=== PATIENT | female | born 1955 | race Caucasian/White ===

== ENCOUNTER 2020-08-12 08:04 | Outpatient (REF) | payer MEDICARE, OTHER, SELFPAY ==
--- NOTE | 2020-08-12 17:45 | PFT_ITS ---
INDICATIONS: Cough. SPIROMETRY: The FEV1 to FVC of 85% with an FEV1 of 2.09 L which is 77% predicted with an FVC of 2.46 L which is 69% predicted with a maximum voluntary ventilation of 69% predicted. LUNG VOLUMES: Total lung capacity 66% predicted with an expiratory reserve volume of 103% predicted. DIFFUSION CAPACITY: DLCO only 29% predicted. COMPARISONS: None. INTERPRETATION: No obstructive ventilatory defect. No significant response to bronchodilators noted. However, the patient has a moderate restrictive ventilatory defect suggesting the possibility of interstitial lung disease. The patient also has a severe diffusion impairment, which is concerning for the above. The patient needs additional imaging studies, a 6-minute walk test, and pulmonary consultation. Best Mccray MD MR/MODL / [id number]
== END 2020-08-12 08:05 | disposition home or self-care (01) ==
LOC: HO.RESP 08:04
PROVIDERS: PCP Physician Assistant; Visit Provider Physician Assistant
DX: R05 Cough (principal)
CPT/HCPCS: 94060; 94727; 94729

== ENCOUNTER 2020-09-10 08:20 | Outpatient (REF) | payer MEDICARE, OTHER, SELFPAY ==
--- NOTE | 2020-09-10 08:24 | CT_ITS ---
EXAMINATION: CT CHEST WITHOUT CONTRAST CLINICAL INFORMATION: Disorder of lung COMPARISON: Previous chest x-ray most recent April 2020 TECHNIQUE: Multidetector volumetric CT imaging of the chest was done. Axial MIP volume rendering provided. Sagittal and coronal reformatted images were obtained. This CT examination was performed using dose optimization techniques as appropriate, variously including the following: *Automated exposure control *Adjustment of mA and/or kV according to patient size (this includes techniques or standardized protocols for targeted exams where dose is matched to indication/reason for exam; i.e. extremities or head) *Use of iterative reconstruction technique DLP: 209 mGy-cm FINDINGS: LUNGS: There are innumerable small bilateral upper lung nodules and increased interstitial markings, right greater than left. This may represent respiratory bronchiolitis or granulomatous disease related to smoking. Sarcoidosis, inhalational pneumoconiosis and hypersensitivity pneumonitis and other causes of upper lobe interstitial lung disease should be considered. There are cystic changes seen in the lower lobes. There is dependent atelectasis seen in both lower lobes. No evidence of emphysema, bronchiectasis or endobronchial or endotracheal lesion is seen. Pulmonary consultation may be helpful. MEDIASTINUM: There is shotty diffuse mediastinal lymphadenopathy. Largest lymph node is a right paratracheal lymph node that is upper normal in size and measures 0.9 x 1.2 cm. Evaluation for hilar adenopathy is limited without IV contrast however there appears to be a shotty bilateral hilar lymphadenopathy as well. The heart does not appear enlarged. There is mitral annular calcification. There is no coronary artery calcification. There is no pericardial effusion. The thoracic aorta is normal in caliber. PLEURA: There is no pleural effusion. No pleural mass or thickening. AXILLA: No lymphadenopathy. UPPER ABDOMEN: The gallbladder has been removed. OSSEOUS STRUCTURES: There are degenerative changes of the spine. CT/CT chest wo con IMPRESSION: Reticular nodular disease with upper lung distribution and shotty mediastinal and hilar lymphadenopathy. Respiratory bronchiolitis or granulomatous disease related to smoking should be considered as well as causes of upper lung interstitial disease such as sarcoidosis, inhalational pneumoconiosis and hypersensitivity pneumonitis. Pulmonary consultation may be helpful.
[2020-09-10 10:04] LABS: Estimated Average Glucose 131 mg/dL; Hemoglobin A1c % 6.2 %
[2020-09-10 10:11] LABS: Alanine Aminotransferase 28 U/L (0-31); Albumin Level 4.5 g/dL (3.5-5.0); Alkaline Phosphatase 61 U/L (39-117); Anion Gap 17 (12-20); Aspartate Amino Transferase 23 U/L (5-31); Bilirubin Total 0.7 mg/dL (0.0-1.0); Blood Urea Nitrogen 14 mg/dL (9-16); Calcium 8.9 mg/dL (8.4-10.2); Carbon Dioxide 22 mmol/L (22-29); Chloride 104 mmol/L (96-108); Cholesterol 229 mg/dL; Estimated Glomerular Filt Rate > 60; Glucose Fasting 146 mg/dL (60-99); HDL Cholesterol 57 mg/dL; LDL Cholesterol Calculated 130 mg/dl; Potassium 4.5 mmol/l (3.3-5.1); Sodium 138 mmol/L (135-145); Total Protein 7.8 g/dL (6.5-8.0); Triglycerides 214 mg/dL
== END 2020-09-10 08:21 | disposition home or self-care (01) ==
LOC: HO.CT 08:20
PROVIDERS: Visit Provider Physician Assistant
DX: J84.9 Interstitial pulmonary disease, unspecified (principal); I10 Essential (primary) hypertension; R73.09 Other abnormal glucose; R05 Cough
CPT/HCPCS: 71250; 80053; 80061; 83036; 86900; 86901

== ENCOUNTER 2020-09-23 11:18 | Outpatient (REF) | payer MEDICARE, MEDICAID, SELFPAY ==
[2020-09-23 14:16] LABS: Basophils Percent Auto 0.5 % (0-2); Eosinophils Absolute Auto 0.1 X10*3/uL (0.0-0.4); Eosinophils Percent Auto 1.8 % (0-4); Hematocrit 46.6 % (37-47); Hemoglobin 15.8 g/dl (12.0-16.0); Imm Gran Abs Auto 0.04 X10*3/uL (0.00-0.03); Imm Gran Pct Auto 0.5 % (0.0-0.4); Lymphocytes Percent Auto 26.3 % (20-40); MANUAL DIFF FLAG NO; Mean Corpuscular HGB Conc 33.9 g/dl (31.0-35.0); Mean Corpuscular Volume 88.4 fL (80-98); Mean Platelet Volume 9.9 fL (9.4-12.3); Monocytes Absolute Auto 0.7 X10*3/uL (0.1-1.2); Monocytes Percent Auto 8.8 % (2-11); Neutrophils Absolute Auto 4.8 X10*3/uL (2.0-8.3); Neutrophils Percent Auto 62.1 % (45-73); Platelet Count 265 X10*3/uL (160-400); Red Blood Count 5.27 X10*6/uL (4.20-5.50); Red Cell Distribution Width 12.7 % (11.0-16.0); White Blood Count 7.8 X10*3/uL (4.8-10.8)
[2020-10-02 06:28] LABS: Angiotensin Converting Enzyme 23 U/L (9-67)
== END 2020-09-23 11:19 | disposition home or self-care (01) ==
LOC: HO.LAB 11:18
PROVIDERS: PCP Physician Assistant; Visit Provider Internal Medicine
DX: R05 Cough (principal); R59.0 Localized enlarged lymph nodes; J84.9 Interstitial pulmonary disease, unspecified
CPT/HCPCS: 36415; 82164; 85025; 99202

== ENCOUNTER → 2020-10-04 13:12 | Outpatient (REF) | payer MEDICARE, OTHER, SELFPAY ==
--- NOTE | 2020-10-04 13:16 | CA_ITS ---
Transthoracic Echocardiogram Patient (Last, First, Middle): Gina Salter S Gender: Female Date of : 1955 Age: 65 Procedure Date: 10/04/2020 Procedure Type: Transthoracic Echocardiogram Location: OP Height: 170.18 cm Weight: 99.79 kg BSA: 2.11 m2 Heart Rate: bpm BP: 140 / 80 mmHg Hospital Liaison: [facility] Referring MD: Morena Lopez MD Symptoms: R09.02 - Hypoxemia Study Quality: Fair ECG Rhythm: Sinus Conclusions: - The left ventricular systolic function is normal. The visually estimated ejection fraction is between 65-70%. - There is mild mitral annular calcification. - No obvious valvular pathology seen on this study. Findings Left Ventricle Normal left ventricular cavity size. There is mildly increased left ventricular wall thickness. The left ventricular systolic function is normal. The visually estimated ejection fraction is between 65-70%. There is no evidence of regional wall motion abnormalities. Diastolic function is normal for age. Right Ventricle Normal right ventricular cavity size and systolic function. Atria The left atrium is normal in size. The right atrium is normal in size. Aortic Valve There is a normal trileaflet aortic valve. There is no aortic valve stenosis. There is trace (trivial) aortic valve regurgitation. Mitral Valve There is mild mitral annular calcification. There is no mitral valve regurgitation. There is no mitral valve stenosis. Pulmonic Valve The pulmonic valve was not well visualized. Tricuspid Valve There is trace tricuspid valve regurgitation. The pulmonary artery systolic pressure is normal. Great Vessels The asc aorta is normal in size. Venous The inferior vena cava is normal in size and collapses greater than 50% with inspiration. Pericardium/Pleural There is no evidence of pericardial effusion. Prior Study Comparison No prior study available for comparison. Recommendations, Care & Conclusions No obvious valvular pathology seen on this study. Measurements 2D Linear Measurements IVSd: 1.11 0.6-0.9/0.6-1.0 cm LVIDd: 5.08 3.9-5.3/4.2-5.9 cm LVIDd Index: 2.41 2.4-3.2/2.2-3.1 cm/m2 LVIDs: 2.66 2.0-3.6 cm LVPWd: 1.16 0.7-1.1 cm LA Diam: 3.60 2.7-3.8/3.0-4.0 cm LAIDs Index: 1.71 1.5-2.3 cm/m2 LV Mass: 276.61 67-162/88-224 g LV Mass Index: 131.09 43-95/49-115 g/m2 LVOT Diam: 2.00 3.0+(-)1.3 cm 2D Systolic Function EF 4C: 77.50 >55% Mitral Valve MV Pk E: 0.55 MV PK A: 0.87 MV Decel Time: 165.00 E/A: 0.60 E'Lateral: 8.22 E'Medial: 6.38 E/E' Med: 8.70 E/E' Lat: 6.70 PHT: 48.00 MVA PHT: 4.58 Decel Cocke: 3.34 Aortic Valve AoV Pk Veto: 1.78 AoV Mn Veto: 1.23 AoV VTI: 0.31 AoV Pk Grad: 13.00 Aov Mn Grad: 7.00 JIMMIE Cont.VTI: 2.19 AI Pk Veto: 4.68 AI Cocke: 2.12 LVOT LVOT Pk Veto: 1.23 LVOT Mn Veto: 0.82 LVOT VTI: 0.22 LVOT Pk Grad: 6.00 LVOT Mn Grad: 3.00 LVOT Diam: 2.00 LVOT Area: 3.14 Diastolic Function MV Pk E: 0.55 MV Pk A: 0.87 E/A: 0.60 E'Medial: 6.38 E/E' Med: 8.70 E' Laterial: 8.22 E/E' Lat: 6.70 Tricuspid Valve TR Pk Veto: 2.39 TR Pk Grad: 23.00 RA Press: 3.00 RVSP: 26.00 Great Vessels Aorta Ao Asc: 3.00 2.1-3.4 cm Updated in Other Vendor System with Status of Final Matt Palomino MD electronically signed on 10/05/2020 2:32:05 PM with status of Final
== END ==
LOC: HO.CARD 13:12
PROVIDERS: Visit Provider Internal Medicine
DX: R05 Cough (principal); R09.02 Hypoxemia; J98.4 Other disorders of lung; J84.9 Interstitial pulmonary disease, unspecified
CPT/HCPCS: 93306

== ENCOUNTER 2020-10-16 | Outpatient (REF) | payer MEDICARE, MEDICAID, SELFPAY | END 2020-10-16 00:01 | disposition home or self-care (01) | LOC: HO.VC | PROVIDERS: Visit Provider Internal Medicine | DX: Z23 Encounter for immunization (principal) | CPT/HCPCS: 0011A ==

== ENCOUNTER → 2020-10-21 09:41 | Outpatient (BNVA) | payer MEDICARE, OTHER, SELFPAY | PROVIDERS: PCP Physician Assistant; Visit Provider Internal Medicine | DX: J84.9 Interstitial pulmonary disease, unspecified (principal); R09.02 Hypoxemia; R05 Cough | CPT/HCPCS: 99212 ==

== ENCOUNTER 2020-11-05 11:44 | Outpatient (REF) | payer MEDICARE, MEDICAID, SELFPAY ==
[2020-11-05 14:23] LABS: Erythrocyte Sedimentation Rate 5 MM/HR (0-20)
[2020-11-06 12:52] LABS: Myeloperoxidase Antibody <1.0 AI; Proteinase 3 PR3 Antibodies <1.0 AI
[2020-11-06 15:41] LABS: IgA 397 mg/dL (70-320); IgG 1197 mg/dL (600-1540); IgM 69 mg/dL (50-300)
[2020-11-06 22:46] LABS: Anti Nuclear Antibody Screen POSITIVE (NEGATIVE)
== END 2020-11-05 11:45 | disposition home or self-care (01) ==
LOC: HO.LAB 11:44
PROVIDERS: PCP Physician Assistant; Visit Provider Internal Medicine
DX: R09.02 Hypoxemia (principal); J84.9 Interstitial pulmonary disease, unspecified
CPT/HCPCS: 36415; 82784; 85652; 86021; 86038; 86039

== ENCOUNTER 2020-11-13 | Outpatient (REF) | payer MEDICARE, MEDICAID, SELFPAY | END 2020-11-13 00:01 | disposition home or self-care (01) | LOC: HO.VC | PROVIDERS: Visit Provider Internal Medicine | DX: Z23 Encounter for immunization (principal) | CPT/HCPCS: 0012A ==

== ENCOUNTER → 2021-01-14 10:05 | Outpatient (BNVA) | payer MEDICARE, OTHER, SELFPAY | PROVIDERS: PCP Physician Assistant; Visit Provider Internal Medicine | DX: J84.9 Interstitial pulmonary disease, unspecified (principal); R05 Cough; R09.02 Hypoxemia | CPT/HCPCS: 99212 ==

== ENCOUNTER 2021-01-24 07:21 | Outpatient (REF) | payer MEDICARE, MEDICAID, OTHER, SELFPAY ==
[2021-01-24 08:26] LABS: Hematocrit 44.5 % (37-47); Mean Corpuscular HGB Conc 33.7 g/dl (31.0-35.0); Mean Corpuscular Hemoglobin 29.4 pg (27.0-33.0); Mean Corpuscular Volume 87.3 fL (80-98); Mean Platelet Volume 9.6 fL (9.4-12.3); Platelet Count 235 X10*3/uL (160-400); Red Cell Distribution Width 12.9 % (11.0-16.0); White Blood Count 6.9 X10*3/uL (4.8-10.8)
[2021-01-24 09:02] LABS: Alanine Aminotransferase 24 U/L (0-31); Albumin Level 4.3 g/dL (3.5-5.0); Alkaline Phosphatase 57 U/L (39-117); Anion Gap 15 (12-20); Aspartate Amino Transferase 16 U/L (5-31); Bilirubin Total 0.6 mg/dL (0.0-1.0); Blood Urea Nitrogen 10 mg/dL (9-16); Calcium 9.1 mg/dL (8.4-10.2); Carbon Dioxide 24 mmol/L (22-29); Chloride 101 mmol/L (96-108); Cholesterol 227 mg/dL; Estimated Glomerular Filt Rate > 60; Glucose Fasting 180 mg/dL (60-99); HDL Cholesterol 53 mg/dL; LDL Cholesterol Calculated 125 mg/dl; Potassium 4.2 mmol/L (3.3-5.1); Sodium 136 mmol/L (135-145); Total Protein 7.5 g/dL (6.5-8.0); Triglycerides 248 mg/dL
== END 2021-01-24 07:22 | disposition home or self-care (01) ==
LOC: HO.LAB 07:21
PROVIDERS: PCP Physician Assistant; Visit Provider Physician Assistant
DX: I10 Essential (primary) hypertension (principal)
CPT/HCPCS: 36415; 80053; 80061; 85027

== ENCOUNTER 2021-04-04 11:23 | Outpatient (REF) | payer MEDICARE, SELFPAY ==
--- NOTE | ~2021-04-04 | XR_ITS ---
EXAMINATION: XR HAND, LEFT XR HAND, RIGHT CLINICAL INFORMATION: Abnormal immunological findings. COMPARISON: None TECHNIQUE: 3 views each hand. FINDINGS: Left Hand: There is mild loss of PIP and DIP joint space without any bony erosive changes. No fracture or dislocation seen. The MCP joints are maintained normal. There is mild degenerative spurring DIP joint right and There is no osteopenia or soft tissue swelling. Right Hand: There is mild loss of PIP and DIP joint space without bony erosive changes or spurring. The MCP joint space is maintained normal. No acute fracture or osteopenia. There is no osteopenia or soft tissue swelling. XR/XR hand LT min 3V IMPRESSION: Mild degenerative changes PIP and DIP joints both digits. There is mild periarticular spurring DIP joint 3rd digit right hand. No acute fractures seen.
--- NOTE | ~2021-04-04 | XR_ITS ---
EXAMINATION: XR HAND, LEFT XR HAND, RIGHT CLINICAL INFORMATION: Abnormal immunological findings. COMPARISON: None TECHNIQUE: 3 views each hand. FINDINGS: Left Hand: There is mild loss of PIP and DIP joint space without any bony erosive changes. No fracture or dislocation seen. The MCP joints are maintained normal. There is mild degenerative spurring DIP joint right and There is no osteopenia or soft tissue swelling. Right Hand: There is mild loss of PIP and DIP joint space without bony erosive changes or spurring. The MCP joint space is maintained normal. No acute fracture or osteopenia. There is no osteopenia or soft tissue swelling. XR/XR hand RT min 3V IMPRESSION: Mild degenerative changes PIP and DIP joints both digits. There is mild periarticular spurring DIP joint 3rd digit right hand. No acute fractures seen.
[2021-04-04 12:39] LABS: MANUAL DIFF FLAG NO
[2021-04-04 12:44] LABS: Basophils Percent Auto 0.4 % (0-2); Eosinophils Absolute Auto 0.1 X10*3/uL (0.0-0.4); Eosinophils Percent Auto 1.1 % (0-4); Hematocrit 43.6 % (37-47); Hemoglobin 14.9 g/dl (12.0-16.0); Imm Gran Abs Auto 0.05 X10*3/uL (0.00-0.03); Imm Gran Pct Auto 0.4 % (0.0-0.4); Lymphocytes Percent Auto 17.8 % (20-40); Mean Corpuscular HGB Conc 34.2 g/dl (31.0-35.0); Mean Corpuscular Hemoglobin 29.4 pg (27.0-33.0); Mean Platelet Volume 9.8 fL (9.4-12.3); Monocytes Percent Auto 8.6 % (2-11); Neutrophils Percent Auto 71.7 % (45-73); Platelet Count 276 X10*3/uL (160-400); Red Blood Count 5.07 X10*6/uL (4.20-5.50); Red Cell Distribution Width 12.8 % (11.0-16.0); White Blood Count 11.2 X10*3/uL (4.8-10.8)
[2021-04-04 13:04] LABS: Alanine Aminotransferase 21 U/L (0-31); Albumin Level 4.6 g/dL (3.5-5.0); Alkaline Phosphatase 62 U/L (39-117); Anion Gap 15 (12-20); Aspartate Amino Transferase 16 U/L (5-31); Bilirubin Total 0.7 mg/dL (0.0-1.0); Blood Urea Nitrogen 14 mg/dL (9-16); C Reactive Protein 1.52 mg/dL (< or = 0.50); Carbon Dioxide 25 mmol/L (22-29); Chloride 102 mmol/L (96-108); Estimated Glomerular Filt Rate > 60; Glucose Random 106 mg/dL (60-115); Rheumatoid Factor < 15.0 IU/mL (<15.0); Sodium 138 mmol/L (135-145); Total Protein 7.9 g/dL (6.5-8.0)
[2021-04-04 13:21] LABS: TSH reflex Free T4 1.56 uIU/mL (0.32-4.0)
[2021-04-04 13:23] LABS: Thyroid Stimulating Hormone 1.52 uIU/mL (0.32-4.0)
[2021-04-04 13:27] LABS: Erythrocyte Sedimentation Rate 18 MM/HR (0-20)
[2021-04-04 13:35] LABS: Glucose Urine UA NEG (NEG); Leukocyte Esterase Urine 1+ (NEG); Nitrite Urine POS (NEG); Specific Gravity - Urine 1.025 (1.005-1.025); Urine Blood TRACE (NEG); Urine Ketones NEG (NEG); Urine Protein NEG (NEG-TRACE)
[2021-04-04 13:37] LABS: Appearance Urine CLOUDY; Color Urine YELLOW
[2021-04-04 13:49] LABS: Bacteria Urine 4+ /LPF; RBC Urine 0-2 /HPF (0); Squamous Epithelial Cell Urine 3+ /LPF
[2021-04-05 10:47] LABS: Antibody to SS-A Antigen <1.0 NEG AI (<1.0 NEG); Antibody to SS-B Antigen <1.0 NEG AI (<1.0 NEG); SM/Ribonucleoprotein Ab <1.0 NEG AI (<1.0 NEG); Scleroderma 70 Antibody <1.0 NEG AI (<1.0 NEG); Smith Protein <1.0 NEG AI (<1.0 NEG)
[2021-04-07 13:07] LABS: Cyclic Citrullinated Peptide <16 UNITS
[2021-04-07 14:21] LABS: Complement C3 197 mg/dL (83-193)
[2021-04-07 17:12] LABS: Thyroglobulin Antibodies 3 IU/mL (< or = 1); Thyroid Peroxidase Antibodies 1 IU/mL (<9)
== END 2021-04-04 11:24 | disposition home or self-care (01) ==
LOC: HO.XRAY 11:23
PROVIDERS: PCP Physician Assistant; Visit Provider Student in an Organized Health Care Education/Training Program
DX: J84.9 Interstitial pulmonary disease, unspecified (principal); R76.8 Other specified abnormal immunological findings in serum; E11.65 Type 2 diabetes mellitus with hyperglycemia; Z79.899 Other long term (current) drug therapy; Z79.84 Long term (current) use of oral hypoglycemic drugs; Z87.891 Personal history of nicotine dependence
CPT/HCPCS: 36415; 73130; 80053; 81001; 82550; 84443; 85025; 85652; 86140; 86160; 86200; 86235; 86376; 86431; 86800; 99202

== ENCOUNTER → 2021-04-15 15:29 | Outpatient (BNVA) | payer MEDICARE, SELFPAY | PROVIDERS: PCP Physician Assistant; Visit Provider Student in an Organized Health Care Education/Training Program | DX: R76.8 Other specified abnormal immunological findings in serum (principal) | CPT/HCPCS: 99212 ==

== ENCOUNTER → 2021-05-21 09:26 | Outpatient (BNVA) | payer MEDICARE, SELFPAY | PROVIDERS: PCP Physician Assistant; Visit Provider Internal Medicine | DX: J84.9 Interstitial pulmonary disease, unspecified (principal); R76.8 Other specified abnormal immunological findings in serum; R09.02 Hypoxemia; R05 Cough | CPT/HCPCS: 99212 ==

== ENCOUNTER 2021-06-13 08:38 | Outpatient (REF) | payer MEDICARE, SELFPAY ==
[2021-06-13 09:35] LABS: Alanine Aminotransferase 22 U/L (0-31); Albumin Level 4.3 g/dL (3.5-5.0); Alkaline Phosphatase 49 U/L (39-117); Anion Gap 14 (12-20); Aspartate Amino Transferase 15 U/L (5-31); Bilirubin Total 0.9 mg/dL (0.0-1.0); Blood Urea Nitrogen 16 mg/dL (9-16); Calcium 9.3 mg/dL (8.4-10.2); Carbon Dioxide 26 mmol/L (22-29); Chloride 102 mmol/L (96-108); Cholesterol 216 mg/dL; Estimated Glomerular Filt Rate > 60; Glucose Fasting 157 mg/dL (60-99); HDL Cholesterol 55 mg/dL; LDL Cholesterol Calculated 119 mg/dl; Potassium 4.3 mmol/L (3.3-5.1); Sodium 138 mmol/L (135-145); Total Protein 7.3 g/dL (6.5-8.0); Triglycerides 212 mg/dL
== END 2021-06-13 08:39 | disposition home or self-care (01) ==
LOC: HO.LAB 08:38
PROVIDERS: PCP Physician Assistant; Visit Provider Physician Assistant
DX: E11.65 Type 2 diabetes mellitus with hyperglycemia (principal)
CPT/HCPCS: 36415; 80053; 80061

== ENCOUNTER 2022-07-27 07:24 | Outpatient (REF) | payer MEDICARE, SELFPAY ==
[2022-07-27 08:36] LABS: Hematocrit 43.1 % (37.0-47.0); Hemoglobin 14.5 g/dl (12.0-16.0); Mean Corpuscular HGB Conc 33.6 g/dl (31.0-35.0); Mean Corpuscular Volume 86.2 fL (80.0-98.0); Mean Platelet Volume 9.4 fL (9.4-12.3); Platelet Count 272 X10*3/uL (160-400); Red Cell Distribution Width 13.2 % (11.0-16.0); White Blood Count 7.2 X10*3/uL (4.8-10.8)
[2022-07-27 09:20] LABS: Creatinine Urine 235.83 mg/dL
[2022-07-27 09:30] LABS: Alanine Aminotransferase 24 U/L (0-31); Albumin Level 4.3 g/dL (3.5-5.0); Alkaline Phosphatase 49 U/L (39-117); Anion Gap 18 (12-20); Aspartate Amino Transferase 18 U/L (5-31); Bilirubin Total 0.5 mg/dL (0.0-1.0); Blood Urea Nitrogen 16 mg/dL (9-16); Calcium 8.9 mg/dL (8.4-10.2); Carbon Dioxide 22 mmol/L (22-29); Chloride 103 mmol/L (96-108); Cholesterol 217 mg/dL; Estimated Glomerular Filt Rate > 60; Glucose Fasting 133 mg/dL (60-99); HDL Cholesterol 53 mg/dL; Iron 98 mcg/dL (30-160); LDL Cholesterol Calculated 122 mg/dl; Percent Iron Saturation 24 % (15-50); Potassium 4.3 mmol/L (3.3-5.1); Sodium 139 mmol/L (135-145); Total Iron Binding Capacity 416 mcg/dL (228-428); Total Protein 7.4 g/dL (6.5-8.0); Triglycerides 214 mg/dL; Unsaturated Iron Binding 318 ug/dL
[2022-07-27 09:32] LABS: Estimated Average Glucose 137 mg/dL; Hemoglobin A1c % 6.4 %
[2022-07-27 09:42] LABS: TSH reflex Free T4 2.01 uIU/mL (0.32-4.0)
[2022-07-27 10:29] LABS: Vitamin D 25-OH Total 10.7 ng/mL (>30)
== END 2022-07-27 07:25 | disposition home or self-care (01) ==
LOC: HO.LAB 07:24
PROVIDERS: PCP Physician Assistant; Visit Provider Physician Assistant
DX: E11.65 Type 2 diabetes mellitus with hyperglycemia (principal); D50.9 Iron deficiency anemia, unspecified; I10 Essential (primary) hypertension
CPT/HCPCS: 36415; 80053; 80061; 82043; 82306; 83036; 83540; 84443; 85027

== ENCOUNTER 2023-02-19 07:41 | Outpatient (REF) | payer MEDICARE, SELFPAY ==
[2023-02-19 08:47] LABS: Hemoglobin 14.9 g/dl (12.0-16.0); Mean Corpuscular HGB Conc 33.1 g/dl (31.0-35.0); Mean Corpuscular Hemoglobin 28.5 pg (27.0-33.0); Mean Platelet Volume 9.5 fL (9.4-12.3); Platelet Count 269 X10*3/uL (160-400); Red Blood Count 5.23 X10*6/uL (4.20-5.50); Red Cell Distribution Width 13.2 % (11.0-16.0); White Blood Count 7.3 X10*3/uL (4.8-10.8)
[2023-02-19 08:51] LABS: Estimated Average Glucose 117 mg/dL; Hemoglobin A1c % 5.7 %
[2023-02-19 09:12] LABS: Creatinine Urine 131.74 mg/dL; Microalbum/Creatinine Ratio Ur 10.6 ug/mg cr
[2023-02-19 09:23] LABS: Alanine Aminotransferase 21 U/L (0-31); Albumin Level 4.3 g/dL (3.5-5.0); Alkaline Phosphatase 45 U/L (39-117); Anion Gap 14 (12-20); Aspartate Amino Transferase 15 U/L (5-31); Bilirubin Total 0.6 mg/dL (0.0-1.0); Blood Urea Nitrogen 19 mg/dL (9-16); Calcium 10.2 mg/dL (8.4-10.2); Carbon Dioxide 27 mmol/L (22-29); Chloride 103 mmol/L (96-108); Cholesterol 235 mg/dL; Estimated Glomerular Filt Rate > 60; Glucose Fasting 128 mg/dL (60-99); HDL Cholesterol 51 mg/dL; LDL Cholesterol Calculated 140 mg/dl; Potassium 4.3 mmol/L (3.3-5.1); Sodium 140 mmol/L (135-145); Total Protein 7.4 g/dL (6.5-8.0); Triglycerides 220 mg/dL
== END 2023-02-19 07:42 | disposition home or self-care (01) ==
LOC: HO.LAB 07:41
PROVIDERS: PCP Physician Assistant; Visit Provider Physician Assistant
DX: E11.65 Type 2 diabetes mellitus with hyperglycemia (principal); I10 Essential (primary) hypertension
CPT/HCPCS: 36415; 80053; 80061; 82043; 83036; 85027

== ENCOUNTER 2023-04-01 09:49 | Outpatient (REF) | payer MEDICARE, OTHER, SELFPAY ==
--- NOTE | ~2023-04-01 | XR_ITS ---
EXAMINATION: XR SOFT TISSUE NECK CLINICAL INDICATION: Stenosis of the larynx. COMPARISON: None available. TECHNIQUE: 2 views of the soft tissue neck were obtained. FINDINGS: No definite abnormality of the oropharynx, larynx or cervical trachea is identified. The epiglottis and aryepiglottic folds appear unremarkable. No radiopaque foreign body is appreciated. There is some soft tissue prominence seen about the anterior mandible. XR/XR soft tissue neck IMPRESSION: No definite narrowing of the larynx identified on this plain film study. No radiopaque foreign body. Soft tissue prominence anterior mandible.
== END 2023-04-01 09:50 | disposition home or self-care (01) ==
LOC: HO.XRAY 09:49
PROVIDERS: PCP Physician Assistant; Visit Provider Physician Assistant
DX: J38.6 Stenosis of larynx (principal)
CPT/HCPCS: 70360

== ENCOUNTER 2023-06-18 09:49 | Outpatient (REF) | payer MEDICARE, OTHER, SELFPAY | END 2023-06-18 09:50 | disposition home or self-care (01) | LOC: HO.XRAY 09:49 | PROVIDERS: PCP Physician Assistant; Visit Provider Physician Assistant | DX: R13.12 Dysphagia, oropharyngeal phase (principal) | CPT/HCPCS: 74220 ==

== ENCOUNTER → 2023-06-18 09:50 | Outpatient (BNV) | payer MEDICARE, SELFPAY | PROVIDERS: PCP Physician Assistant; Visit Provider Radiology Diagnostic Radiology | DX: R13.12 Dysphagia, oropharyngeal phase (principal) | CPT/HCPCS: 74230 ==

== ENCOUNTER 2023-07-22 11:26 | Outpatient (AMB) | payer MEDICARE, SELFPAY ==
[2023-07-22 11:34] VITALS: BP 131/62; PULSE 73; BMI 32.5
--- NOTE | 2023-07-22 11:34 | A.OFFVIS_ITS ---
Intake Vital Signs 07/22/23 11:34 Height 5 ft 7 in Weight 207 lb 3.752 oz BMI 32.5 BP 131/62 Blood Pressure Location Lt brachial Position Sitting Pulse 73 Intake Visit Reasons: Dysphagia Intake Note: Gina presents in the office as a new patient for dysphagia. CC: She states that she is not having issues with swallowing. She has had a cough for 4 years and she feels like it is not this. ENT gave her Omeprazole to clear up the cough and she is no longer on the omeparzole. Now she only has a cough that is like one when you have a cold. She thought she was here due to her hiatal hernia. 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 Required: No Allergies amoxicillin Adverse Reaction (Mild, Verified 07/22/23 11:38) GI UPSET HPI HPI Comments History of Present Illness Details A 68 y/o female referred for dysphagia- she disagrees- she has a chronic cough- she does not think it is reflux- She saw ENT- for a cough tx'd omeprazole 3 months sx resolved- gave her diarrhea- no further omeprazole- since BS- This cough 1 -2 weeks ago it is not the same -she says cough is due to by wrist that she picked up during a bus trip Appetite is good Bowels are normal Nausea, vomiting, hematemesis, hematochezia fever or chills she was seeing pulmonary- for lung disease- she stopped seeing Cologuard - negative 2 years ago [facility] Medical History Pre-diabetes Exercise hypoxemia Mediastinal lymphadenopathy Impaired glucose metabolism Surgical History History of section History of cholecystectomy Family History Father Stroke Hypertension Mother Stroke Diabetes Brother Limbic encephalitis Social History (Updated 07/22/23 @ 13:15 by Jane Sousa PA-C) Housing: House Alcohol intake: current Alcohol intake frequency: 0-2 drinks per day Alcohol type: wine Patient Tobacco Use Status: Former Tobacco user Tobacco use type: Cigarette Years Smoked: quit 40 years ago e-Cigarette/Vaping Use: Never Used service: No Current occupational status: retired 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 Cognitive needs: No Hearing needs: No Vision needs: Yes (Per partient is over due for eye exam) Review of Systems Const All systems reviewed & are unremarkable except as noted in HPI and below Card Denies dyspnea and Denies dyspnea on exertion Resp Denies chest congestion, Reports cough, Denies dyspnea and Denies dyspnea on exertion GI Denies abdominal pain, Denies change in bowel habits, Denies heartburn, Denies nausea and Denies vomiting Physical Exam Vital Signs: Last Vital Signs Pulse 73 07/22/23 11:34 BP 131/62 07/22/23 11:34 BMI result Body Mass Index 32.5 Const General: cooperative, healthy appearing, comfortable and no acute distress Orientation/consciousness: patient oriented x3 Limitations: no limitations HEENT Other: Postnasal drip, cough Eyes Sclerae: sclerae normal Resp Effort & Inspection: normal respiratory effort and able to speak in complete sentences Auscultation: clear to auscultation bilaterally, no rales, no rhonchi and no wheezes Cardio Rate: regular rate Rhythm: regular rhythm Heart sounds: S1 normal heart sound present and S2 normal heart sound present GI Palpation (GI): Soft to palpation and nontender Auscultation: bowels sounds not normal Skin General skin exam: no rashes or lesions noted Neuro General: patient oriented x3 Psych Appearance: grossly normal and well kempt Mental Status: mental status grossly normal Speech and movement: Normal speech and movement present and Clear speech present Affect: normal affect Attitude: cooperative Thought process: Normal thought process present Thought content: Normal thought content present Results Reviewed Results Reviewed: FL/FL barium swallow IMPRESSION: Small sliding hiatal hernia with mild gastroesophageal reflux. Assessment & Plan Assessment & Plan (1) Dysphagia: Comment: she denies Code(s): R13.10 - Dysphagia, unspecified Qualifiers: Dysphagia type: oropharyngeal phase Qualified Code(s): R13.12 - Dysphagia, oropharyngeal phase (2) ILD (interstitial lung disease): Comment: ON THE CT SCAN THERE IS EVIDENCE OF SOME RETICULO- NODULAR DIESEASE PREDOMINANTLY IN UPPER LOBES, BUT MILD . NO DEFINITE EMPHYSEMA . RHEUMATOLOGY W/U NEG. Code(s): J84.9 - Interstitial pulmonary disease, unspecified (3) Chronic cough: Comment: Very pleasant, referred with dysphagia, however she has a cough she associates mostly with viral as well as history of interstitial lung disease , she does have postnasal drip We did review symptoms of cough that seemed to resolve while being on PPI however once she had discontinued it she began with cough, as well had URI reviewing barium swallow and show hiatal hernia as well as mild reflux Which she will further discuss with PCP Code(s): R05 - Cough Plan: Reviewed barium swallow Cough could be symptoms of reflux She is not certain she wants to pursue this. She is aware per our discussion we did not wish to miss anything that could cause potential harm Ask that she has discussion with her PCP which she follows up with in the near future Plan she will f/u after she sees pcp- Patient Instructions: Very pleasant 68-year-old female- Reviewed barium swallow Cough could be symptoms of reflux-discussed risks with long-term,un treated She is not certain she wants to pursue this. She is aware she may contact me should she reconsider She has also agreed to keep us informed after she sees PCP Coding Level of Care Code New Pt Level 3 ([id number]) Diagnoses Oropharyngeal dysphagia R13.12 Dysphagia type: oropharyngeal phase ILD (interstitial lung disease) J84.9 Chronic cough R05 Time Spent (min) 30
== END 2023-07-22 15:21 | disposition home or self-care (01) ==
PROVIDERS: PCP Physician Assistant; Visit Provider Physician Assistant
DX: R13.12 Dysphagia, oropharyngeal phase (principal); J84.9 Interstitial pulmonary disease, unspecified; R05.9 Cough, unspecified
CPT/HCPCS: 99203

== ENCOUNTER → 2023-07-22 11:26 | Outpatient (BNVA) | payer MEDICARE, OTHER, SELFPAY | PROVIDERS: PCP Physician Assistant; Visit Provider Physician Assistant | DX: J84.9 Interstitial pulmonary disease, unspecified (principal); R13.12 Dysphagia, oropharyngeal phase; R05.9 Cough, unspecified | CPT/HCPCS: 99202 ==

== ENCOUNTER 2024-02-09 10:30 | Outpatient (AMB) | payer MEDICARE, MEDICAID, SELFPAY ==
[2024-02-09 10:36] VITALS: BMI 34.1
--- NOTE | 2024-02-09 10:38 | AM.OFFVISMDC ---
Intake Vital Signs 02/09/24 10:36 02/09/24 10:42 Height 5 ft 5.75 in Weight 209 lb 8 oz BMI 34.1 BP 122/80 Blood Pressure Location Lt brachial Position Sitting Pulse 72 Pulse Source Pulse Oximeter Pulse Oximetry (%) 96 Oxygen Delivery Method Room Air Intake Visit Reasons: AWV Intake Note: Patient is here for an Annual Wellness Visit. Cabin Outfitter Required: No Accompanied by: Self / Same As Patient Allergies amoxicillin Adverse Reaction (Mild, Verified 02/09/24 10:38) GI UPSET HPI AWV HPI Details Patient is a 60-year-old female here today for annual wellness visit. Patient has a past medical history significant for type 2 diabetes, hyperlipidemia, obesity, interstitial lung disease and hypertension. Concern--> reports having right hand and forearm pain. Did have a Dupuytren's contracture surgery many years ago in her right palm. She does report having some disability in her right hand and is concerned. PLAN: Will send for EMG testing of the right hand to evaluate for neuropathy. Colon cancer screening: Declines Breast cancer screening: Declines Cervical cancer screening: Declines Bone density: Declines End of life planning- does have MOLST form at home though has not filled out. Will discuss with family. Vaccines: Up-to-date with COVID vaccine, declines pneumonia, tetanus HPI Comments History of Present Illness Details reviewed past medical history- yes reviewed surgical / hospitalization history- yes reviewed current medications- yes reviewed family history- yes home safety throw rugs? grab bars? raised toilet seat? working smoke detectors? activities of daily living difficulty bathing or showering? difficulty dressing? difficulty using the toilet? difficulty getting in and out of bed? difficulty walking? receives help from other person's with any of the above tasks? instrumental activities of daily living uses telephone - gets to place out of walking distance- go shopping for groceries- repairs own meals- does own minor home maintenance- does own laundry- does own housework- manages own money- currently takes medication- end of life planning discussed advanced directives- yes advanced directives on file? discussed wishes expressed in advanced directives. fall risk have you had any falls with injuries in the past year? have you had 2 or more falls in the past year? fall risk assessment: [facility] Medical History Pre-diabetes Exercise hypoxemia Mediastinal lymphadenopathy Impaired glucose metabolism Surgical History History of section History of cholecystectomy Family History Father Stroke Hypertension Mother Stroke Diabetes Brother Limbic encephalitis Social History Housing: House Alcohol intake: current Alcohol intake frequency: 0-2 drinks per day Alcohol type: wine Patient Tobacco Use Status: Former Tobacco user Tobacco use type: Cigarette Years Smoked: quit 40 years ago e-Cigarette/Vaping Use: Never Used service: No Current occupational status: retired 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 Cognitive needs: No Hearing needs: No Vision needs: Yes (Per partient is over due for eye exam) Questionnaire Medicare Wellness Checkup What [age] 65-69 What gender do you identify with?: female During the past 4 weeks, how much have you been bothered by emotional problems such as feeling anxious, depressed, irritable, sad or downhearted, and blue?: not at all During the past 4 weeks, has your physical & emotional health limited your social activities with family, friends, neighbors, or groups?: slightly During the past 4 weeks, how much bodily pain have you generally had?: mild pain During the past 4 weeks, was someone available to help you if you needed & wanted help?: yes, as much as I wanted During the past 4 weeks, what was the hardest physical activity you could do for at least 2 minutes?: light Can you get to places out of walking distance without help? (For eg., can you travel alone on buses, taxis or drive your car?): Yes Can you go shopping for groceries or clothes without someone's help?: Yes Can you prepare your own meals?: Yes Can you do your housework without help?: Yes Because of any health problems, do you need the help of another person with your personal care needs such as eating, bathing, dressing or getting around the house?: No Can you handle your own money without help?: Yes During the past 4 weeks, how would you rate your health in general?: good During the past 4 weeks how have things been going for you?: very well; could hardly better Are you having difficulties driving your car?: no Do you always fasten your seat belt when you are in a car?: yes, usually During past 4 weeks, have you been bothered by the following: never: Sexual problems?, Trouble eating well? and Problems using the telephone? and sometimes: Falling or dizzy when standing up, Teeth or denture problems? and Tiredness or fatigue? Have you fallen 2 or more times in the past year?: No Are you afraid of falling?: No Are you a smoker?: no During the past 4 weeks, how many drinks of wine, beer, or other alcoholic beverages did you have?: 6-9 drinks per week Do you exercise for about 20 minutes 3 or more times a week?: no, I usually do not exercise this much Have you been given information to help with the following?: no: Hazards in your house that might hurt you? and no: Keeping track of your medications? How often do you have trouble taking medicines the way you have been told to take them?: I always take medicine as prescribed How confident are you that you can control & manage most of your health problems?: very confident What is your race?: White Mini Mental State Exam (MMSE) Orientation What is the (year) (season) (date) (day) (month)?: season Where are we (state) (county) (town or city) (hospital) (floor)?: state and town or city Attention & Calculation (CHOOSE ONE) Ask pt to begin with 100 & count backward by 7. Stop after 5 repeats. If pt cannot ask them to spell the word WORLD backward.: 93, 86, 79, 72 and 65 Spell WORLD backwards (DLROW): 5 letters Score Score: 13 Activity of Daily Living Bathing - sponge bath, tub bath or shower: receives no assistance (gets in/out by self, if usual bathing means Dressing - getting clothes from closets & drawers, including inner/outer garments & fasteners.: gets clothes & gets completely dressed without help Toileting - going to the 'toilet room' for urine/bowel elimination & cleaning self/arranging clothes: goes to toilet room, cleans self, arranges clothes without help Transfer: moves in & out of bed and chair without help (may use support object) Continence: controls urination/bowel movements completely by self Feeding: feeds self without help Total Score: 0 Information obtained from: patient Using telephone: independent Traveling: independent Shopping: independent Preparing meals: independent Housework: independent Taking medicine: independent Managing money: independent PHQ-9 Over the last 2 weeks, how often have you been bothered by any of the following problems? 1. Little interest or pleasure in doing things: not at all 2. Feeling down, depressed, or hopeless: not at all 3. Trouble falling or staying asleep, or sleeping too much: not at all 4. Feeling tired or having little energy: not at all 5. Poor appetite or overeating: not at all 6. Feeling bad about yourself - or that you are a failure or have let yourself or your family down: not at all 7. Trouble concentrating on things, such as reading the newspaper or watching television: not at all 8. Moving or speaking so slowly that other people could have noticed. Or the opposite - being so fidgety or restless that you have been moving around a lot more than usual: not at all 9. Thoughts that you would be better off or of hurting yourself in some way: not at all Total score: 0 Depression Screening Interpretation: Negative Depression Screening Done: Yes 31898 - PHQ-9 Billing: Yes Source: Developed by Drs. Wilson Wilson, Sheri Roth, Aries Leiva and colleagues, with an educational dejuan from [employer]. Thrive Questionnaire Date Thrive assessed: 02/09/24 I am a: Patient What is your living situation today?: I have a steady place to live Within the past 12 months, did the food you bought not last and you didn't have the money to get more?: Never true Within the past 12 months, did you worry whether your food would run out before you got money to buy more?: Never true Do you have trouble paying for medicines?: No Do you have trouble getting transportation to medical appointments?: No Do you have trouble paying your heating and electricity bill?: No Do you have trouble taking care of your child, family member or friend?: No Do you have trouble with day-to-day activities such as bathing, preparing meals, shopping, managing finances, etc.?: No Are you currently unemployed and looking for a job?: No Are you interested in more education?: No Please select the resources that you would like help with: None Currently or been in a relationship where the following occur: no concerns reported THRIVE Score: 0 JOSEPH-7 AMB Questionnaire JOSEPH-7 Date JOSEPH - 7 assessed: 02/09/24 Feeling nervous, anxious, or on edge: 0 = Not at all Not being able to stop or control worryin = Not at all Worrying too much about different things: 0 = Not at all Trouble relaxin = Not at all Being so restless that it is hard to sit still: 0 = Not at all Becoming easily annoyed or irritable: 0 = Not at all Feeling afraid as if something awful might happen: 0 = Not at all Total JOSEPH-7 score (0-4 normal; 5-9 mild; 10-14 moderate; 15-21 severe): 0 Source: Developed by Drs. Wilson Wilson, Sheri Roth, Aries Leiva and colleagues, with an educational dejuan from [employer]. JOSEPH-7 Assessment Billing JOSEPH-7 Assessment Tool: JOSEPH-7 Assessment 52328 Physical Exam Vital Signs: Last Vital Signs BP 122/80 02/09/24 10:42 BMI result Body Mass Index 34.1 HEENT Other: hearing screening whisper test- pass Eyes Other: vision screening- 20/ 20 OS OU OD Other: urinary incontinence? no Neuro Other: balance Romberg- normal tandem walk test- able walk-in turned test- able rise from sit to stand- within 2 seconds Assessment & Plan Assessment & Plan (1) Encounter for annual wellness visit (AWV) in Medicare patient: Code(s): Z00.00 - Encounter for general adult medical examination without abnormal findings Plan: As per HPI (2) Right hand paresthesia: Code(s): R20.2 - Paresthesia of skin Plan: As per HPI has been experiencing right hand and forearm pain, will send for EMG to evaluate for a cubital tunnel versus carpal tunnel neuropathy . Plan As per HPI Orders: Orders [place] electromyogram (EMG) Today R20.2 - Paresthesia of skin Quality Reporting (2019) Depression/Bipolar (159/160/161/177) PHQ-9: Total score: 0 Coding Level of Care Code Medicare Subsequent (G0439) Est Pt Level 3 (95407) Diagnoses Encounter for annual wellness visit (AWV) in Medicare patient Z00.00 Right hand paresthesia R20.2 CPT Codes Advance Care Planning - Time spent: 1-15 minutes, not on file ([id number]) Additional Codes JOSEPH-7 Assessment Billing - JOSEPH-7 Assessment Tool: JOSEPH-7 Assessment 07590 ([id number]) Advance Care Planning Advance Care Planning discussion: Exists, not on file Date of discussion: 02/09/24 Forms completed: PRECIOUS Time spent: 1-15 minutes, not on file Actual minutes spent: 4
[2024-02-09 10:42] VITALS: BP 122/80; PULSE 72; O2SAT 96
== END 2024-02-09 11:17 | disposition home or self-care (01) ==
PROVIDERS: PCP Physician Assistant; Visit Provider Physician Assistant
DX: Z00.00 Encounter for general adult medical examination without abnormal findings (principal); R20.2 Paresthesia of skin
CPT/HCPCS: 1124F; 99213; G0439

== ENCOUNTER 2024-02-15 10:15 | Outpatient (REF) | payer MEDICARE, MEDICAID, SELFPAY ==
--- NOTE | 2024-02-15 10:17 | EMG_ITS ---
Right median and ulnar motor and sensory studies were performed. Right radial and median and lateral antecubital brachial sensory studies were performed and paraspinal muscles were tested with a needle. IMPRESSION: This is an unremarkable study with no evidence of any entrapment neuropathy. MD MAIA Best/DANNY / [phone]
== END 2024-02-15 10:16 | disposition home or self-care (01) ==
LOC: HO.NEURO 10:15
PROVIDERS: PCP Physician Assistant; Visit Provider Physician Assistant
DX: R20.2 Paresthesia of skin (principal)
CPT/HCPCS: 95886; 95910

== ENCOUNTER 2024-02-19 07:43 | Outpatient (REF) | payer MEDICARE, MEDICAID, SELFPAY ==
[2024-02-19 08:28] LABS: Hematocrit 44.5 % (37.0-47.0); Hemoglobin 15.2 g/dl (12.0-16.0); Mean Corpuscular HGB Conc 34.2 g/dl (31.0-35.0); Mean Corpuscular Hemoglobin 29.7 pg (27.0-33.0); Mean Corpuscular Volume 87.1 fL (80.0-98.0); Mean Platelet Volume 9.5 fL (9.4-12.3); Platelet Count 282 X10*3/uL (160-400); Red Blood Count 5.11 X10*6/uL (4.20-5.50); Red Cell Distribution Width 13.7 % (11.0-16.0); White Blood Count 8.3 X10*3/uL (4.8-10.8)
[2024-02-19 09:08] LABS: Alanine Aminotransferase 15 U/L (0-31); Albumin Level 4.3 g/dL (3.5-5.0); Alkaline Phosphatase 44 U/L (39-117); Anion Gap 16 (12-20); Aspartate Amino Transferase 12 U/L (5-31); Bilirubin Total 0.4 mg/dL (0.0-1.0); Blood Urea Nitrogen 25 mg/dL (9-16); Calcium 9.8 mg/dL (8.4-10.2); Carbon Dioxide 23 mmol/L (22-29); Chloride 104 mmol/L (96-108); Estimated Average Glucose 120 mg/dL; Estimated Glomerular Filt Rate 43; Glucose Fasting 152 mg/dL (60-99); Hemoglobin A1c % 5.8 % (<6.0); Potassium 3.9 mmol/L (3.3-5.1); Sodium 139 mmol/L (135-145); Total Protein 7.7 g/dL (6.5-8.0)
== END 2024-02-19 07:44 | disposition home or self-care (01) ==
LOC: HO.LAB 07:43
PROVIDERS: PCP Physician Assistant; Visit Provider Physician Assistant
DX: E11.65 Type 2 diabetes mellitus with hyperglycemia (principal)
CPT/HCPCS: 36415; 80053; 83036; 85027

== ENCOUNTER 2024-05-11 09:58 | Outpatient (AMB) | payer MEDICARE, MEDICAID, SELFPAY ==
[2024-05-11 10:01] VITALS: BP 142/84; PULSE 88; O2SAT 94; BMI 34.5
--- NOTE | 2024-05-11 10:01 | MHC.PC.OV ---
Vital Signs 05/11/24 10:01 Height 5 ft 5.75 in Weight 212 lb 6 oz BMI 34.5 BP 142/84 H Blood Pressure Location Lt brachial Position Sitting Pulse 88 Pulse Source Pulse Oximeter Pulse Oximetry (%) 94 Oxygen Delivery Method Room Air Intake Visit Reasons: f/u DMII Supervisor Trust Accounts Required: No Accompanied by: Self / Same As Patient Allergies amoxicillin Adverse Reaction (Mild, Verified 05/11/24 10:29) GI UPSET Medication List - Last Reconciled 05/11/24 by Kahlil Escamilla PA-C acetaminophen (Tylenol Extra Strength) 500 mg PO Q6H PRN hydrochlorothiazide 25 mg PO DAILY metformin 1,000 mg PO BID 30 days Tobacco use date assessed: 05/11/24 Fall risk assessment: No Falls in past year Last assessed Fall Risk: 05/11/24 Dental Screening Dental Screen Date: 05/11/24 Did you have a dental visit in the last 12 months?: Yes Did you have a dental problem in the last 6 months where you did not have access to dental care?: No Was dental information given to patient?: Patient has dentist HPI f/u DMII HPI Details Patient is a 69 year female here today for follow-up visit.? Patient has a past medical history significant for hypertension, obesity,interstitial lung disease. Concerns--> reports over the last several weeks having right wrist dull pain. Over though she did get an EMG of her upper extremities a few months back though did not have any neuropathy. She denies any particular trauma to her right hand wrist. She believes she probably has arthritis. Will get x-ray of her right wrist to confirm diagnosis of arthritis. We did discuss perhaps doing occupational therapy though she declines at this time. ILD:? {Patient does not agree with diagnosis} Interval history-->. HAs uses inhaler with some relief of her pulm symptoms. 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 Patient's pulmonary function test showing restrictive pulmonary disease and no obstructive pulmonary disease.? Patient is ANS titers and IgA levels are elevated significant for rheumatological disease.(has seen a supervisor motor vehicle assembly whom recommended seeing pulmonology) Has seen property supervisor whom? suggesting a lung biopsy though patient does not want a invasive procedure.? Also her 6min minute walking test did show hypoxia exercise induced. Currently-->? Unfortunately has stopped seeing pulmonology.? Still has time to time a dry cough that she reports has somewhat gotten better. 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 Has used a rescue albuterol inhaler though feels is not helpful for her cough. .. Hypertension: ? Blood pressure acceptable today in office.? She denies any headaches, vision changes, chest discomfort or palpitations.? She continues on hydrochlorothiazide 25 mg. . DMII:? Patient does not regularly check her blood sugars. Continues on metformin a 1000 b.i.d. though does report GI side effects from the high dose of metformin. PLAN: Will decrease her dose of metformin to 500 b.i.d. if able to start GLP 1(Ozempic) .. Obesity:? She understands his BMI is over 30 and is working on reducing weight by being more physically active and updated better eating habits. Laboratory Tests 07/27/22 02/19/23 02/19/24 07:34 08:16 08:00 RBC 5.11 Fasting Glucose 133 H 128 H 152 H Hemoglobin A1c % 6.4 5.7 Cholesterol 217 235 [facility] Medical History Pre-diabetes Exercise hypoxemia Mediastinal lymphadenopathy Impaired glucose metabolism Surgical History History of section History of cholecystectomy Family History Father Stroke Hypertension Mother Stroke Diabetes Brother Limbic encephalitis Social History Housing: House Alcohol intake: current Alcohol intake frequency: 0-2 drinks per day Alcohol type: wine Patient Tobacco Use Status: Former Tobacco user Tobacco use type: Cigarette Years Smoked: quit 40 years ago e-Cigarette/Vaping Use: Never Used service: No Current occupational status: retired 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 Wilson Wilson, Sheri Roth, Aries Leiva and colleagues, with an educational dejuan from [employer]. Review of Systems Const Denies headache(s) Eyes Denies loss of vision ENT Denies vertigo, Denies dizziness, Denies headache(s) and Denies sore throat Card Denies chest pain, Denies leg edema and Denies lightheadedness Resp Denies cough, Denies hemoptysis and Denies wheezing GI Denies abdominal pain, Denies melena, Denies constipation, Denies diarrhea and Denies vomiting Denies urinary frequency, Denies dysuria and Denies urinary urgency Musc Denies arthralgias, Denies joint swelling, Denies numbness and Denies tingling Neuro Denies Abnormal speech present, Denies behavioral changes, Denies vertigo, Denies dizziness, Denies headache(s), Denies loss of vision, Denies memory loss, Denies numbness and Denies tingling Psych Denies anxiety, Denies behavioral changes, Denies depression, Denies memory loss and Denies panic attacks Praveen/Lymph Denies easy bleeding and Denies easy bruising Aller/Immun Denies wheezing Physical exam (Primary Care) Vital Signs: Last Vital Signs Pulse 88 05/11/24 10:01 BP 142/84 H 05/11/24 10:01 Pulse Ox 94 05/11/24 10:01 Oxygen Delivery Method Room Air 05/11/24 10:01 BMI result Body Mass Index 34.5 Tobacco/Smoking Status: Tobacco use Status Tobacco use date assessed 05/11/24 05/11/24 10:06 Patient Tobacco Use Status Former Tobacco user 05/11/24 10:03 Tobacco use type Cigarette 05/11/24 10:03 e-Cigarette/Vaping Use Never Used 05/11/24 10:03 Thrive Assessment: Date of Thrive Assessment Date Thrive assessed 02/09/24 05/11/24 10:03 Const General: healthy appearing, no acute distress, alert and awake Nutritional Appearance: well nourished Orientation/consciousness: oriented to person, oriented to place and oriented to time HENMT Ears: TM's normal bilaterally General nose exam: Normal nasal mucous membranes and turbinates present Eyes Conjunctivae: conjunctivae normal Sclerae: sclerae normal Pupils: Equal, round and reactive pupils present Neck Neck: Yes no lymphadenopathy and Yes no JVD Thyroid: Thyroid normal Carotids: no bruits Resp Effort & Inspection: normal respiratory effort and not tachypneic Auscultation: no crackles, no rales, no rhonchi and no wheezes Cardio Rate: regular rate Rhythm: regular rhythm Heart sounds: no murmurs and normal S1 and S2 GI Palpation (GI): Soft to palpation, nontender, no hepatomegaly and no splenomegaly Auscultation: normal bowel sounds Skin General skin exam: no rashes or lesions noted and dry skin Neuro General: oriented to person, oriented to place and oriented to time Cranial nerves: Yes Equal, round and reactive pupils present Speech: No Abnormal speech present Gait exam (Neuro): Normal gait present Motor exam (neuro): no tremor noted Extrem Right upper extremity: full ROM Left upper extremity: full ROM Right lower extremity: full ROM; no edema Left lower extremity: full ROM; no edema Psych Mental Status: mental status grossly normal Speech and movement: Normal speech and movement present Affect: normal affect Attitude: cooperative Thought process: Normal thought process present Assessment and Plan Assessment & Plan (1) DMII (diabetes mellitus, type 2): Code(s): E11.9 - Type 2 diabetes mellitus without complications Qualifiers: Diabetes mellitus complication status: with hyperglycemia Diabetes mellitus terminal gauger supervisor insulin use: without terminal gauger supervisor use Qualified Code(s): E11.65 - Type 2 diabetes mellitus with hyperglycemia Plan: Patient's type 2 diabetes well controlled with current dose of metformin 1000 mg b.i.d.. She reports having some GI side effect from high dose of metformin. Will reduce dose to 500 b.i.d.. Will add on Ozempic for added benefit of weight loss as well. Goal A1c is to remain below 7.0 (2) Right wrist tendinitis: Code(s): M77.8 - Other enthesopathies, not elsewhere classified Plan: Patient reports a several month history of right wrist pain. She denies any trauma to the right wrist. Did EMG though did not have any neuropathy. Will send for x-ray to evaluate for osteoarthritis (3) HTN (hypertension): Code(s): I10 - Essential (primary) hypertension Qualifiers: Hypertension type: essential hypertension Qualified Code(s): I10 - Essential (primary) hypertension Plan: Patient's blood pressure slightly elevated today in office, does report feeling somewhat sad about a recent to a friend., continue her current dose of antihypertensive medication with goal blood pressure be below 140/90 (4) HLD (hyperlipidemia): Code(s): E78.5 - Hyperlipidemia, unspecified Qualifiers: Hyperlipidemia type: mixed hyperlipidemia Qualified Code(s): E78.2 - Mixed hyperlipidemia Plan: Patient's most recent fasting lipid panel showing elevated total cholesterol and LDL. She would like to work on lifestyle modifications to reduce her cholesterol. Goal LDL to be below 100. Not interested in starting statin therapy at this time. Orders: Orders Comprehensive [place]. Panel Fast Today E11.65 - Type 2 diabetes mellitus with hyperglycemia Lipid Panel Today E78.2 - Mixed hyperlipidemia XR wrist RT 2V Today M77.8 - Other enthesopathies, not elsewhere classified Hemoglobin A1c Today E11.65 - Type 2 diabetes mellitus with hyperglycemia Microalbumin, Random (w Creat) Today I10 - Essential (primary) hypertension Complete Blood Count no Diff Today E11.65 - Type 2 diabetes mellitus with hyperglycemia Medications: New semaglutide (Ozempic) 0.25 mg (0.368 mL) subcut QWEEK 3 mL 0RF 4 weeks E11.65 - Type 2 diabetes mellitus with hyperglycemia blood sugar diagnostic (FreeStyle Lite Strips) As directed 100 ea 3RF E11.65 - Type 2 diabetes mellitus with hyperglycemia, E11.9 - Type 2 diabetes mellitus without complications blood-glucose meter (FreeStyle Lite Meter kit) As directed 1 ea 0RF E11.65 - Type 2 diabetes mellitus with hyperglycemia lancets (FreeStyle Lancets) As directed 100 ea 3RF E11.65 - Type 2 diabetes mellitus with hyperglycemia, E11.9 - Type 2 diabetes mellitus without complications Patient Instructions: Goal: A1c to remain below 7.0, LDL to be below 100 Barriers: Adherence to physical activity and healthy eating habits Coding Level of Care Code Est Pt Level 4 (70873) Diagnoses Type 2 diabetes mellitus with hyperglycemia, without long-term current use of insulin E11.65 Diabetes mellitus complication status: with hyperglycemia Diabetes mellitus assisted insulin use: without terminal gauger supervisor use Right wrist tendinitis M77.8 Essential hypertension I10 Hypertension type: essential hypertension Mixed hyperlipidemia E78.2 Hyperlipidemia type: mixed hyperlipidemia
== END 2024-05-11 11:05 | disposition home or self-care (01) ==
PROVIDERS: PCP Physician Assistant; Visit Provider Physician Assistant
DX: E11.65 Type 2 diabetes mellitus with hyperglycemia (principal); M77.8 Other enthesopathies, not elsewhere classified; I10 Essential (primary) hypertension; E78.2 Mixed hyperlipidemia
CPT/HCPCS: 99214

== ENCOUNTER 2024-07-25 07:17 | Outpatient (REF) | payer MEDICARE, MEDICAID, SELFPAY ==
[2024-07-25 08:23] LABS: Mean Corpuscular HGB Conc 34.1 g/dl (31.0-35.0); Mean Corpuscular Hemoglobin 29.8 pg (27.0-33.0); Mean Corpuscular Volume 87.2 fL (80.0-98.0); Mean Platelet Volume 9.5 fL (9.4-12.3); Platelet Count 282 X10*3/uL (160-400); Red Cell Distribution Width 13.4 % (11.0-16.0); White Blood Count 7.6 X10*3/uL (4.8-10.8)
[2024-07-25 08:33] LABS: Estimated Average Glucose 117 mg/dL; Hemoglobin A1C 144.1255 umol/L; Hemoglobin A1c % 5.7 % (<6.0); Total Hemoglobin (HGBA1C) 3692.3512 umol/L
[2024-07-25 09:01] LABS: Creatinine Urine 169.11 mg/dL; Microalbum/Creatinine Ratio Ur 16.5 ug/mg cr (<30)
[2024-07-25 09:11] LABS: Alanine Aminotransferase 19 U/L (0-31); Albumin Level 4.1 g/dL (3.5-5.0); Alkaline Phosphatase 48 U/L (39-117); Anion Gap 15 (12-20); Aspartate Amino Transferase 25 U/L (5-31); Bilirubin Total 0.5 mg/dL (0.0-1.0); Blood Urea Nitrogen 15 mg/dL (9-16); Calcium 9.8 mg/dL (8.4-10.2); Carbon Dioxide 24 mmol/L (22-29); Chloride 104 mmol/L (96-108); Cholesterol 202 mg/dL (<200); Estimated Glomerular Filt Rate > 60; Glucose Fasting 114 mg/dL (60-99); HDL Cholesterol 51 mg/dL (>40); LDL Cholesterol Calculated 108 mg/dL (<100); Sodium 139 mmol/L (135-145); Total Protein 7.4 g/dL (6.5-8.0); Triglycerides 218 mg/dL (<150)
== END 2024-07-25 07:18 | disposition home or self-care (01) ==
LOC: HO.LAB 07:17
PROVIDERS: PCP Physician Assistant; Visit Provider Physician Assistant
DX: M77.8 Other enthesopathies, not elsewhere classified (principal); I10 Essential (primary) hypertension; E78.2 Mixed hyperlipidemia; E11.65 Type 2 diabetes mellitus with hyperglycemia
CPT/HCPCS: 36415; 73100; 80053; 80061; 82043; 82570; 83036; 85027

== ENCOUNTER 2024-08-02 10:54 | Outpatient (AMB) | payer MEDICARE, MEDICAID, SELFPAY ==
--- NOTE | 2024-08-02 10:56 | MHC.PC.OV ---
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: No Accompanied by: Self / Same As Patient Allergies amoxicillin Adverse Reaction (Mild, Verified 08/02/24 11:06) GI UPSET Medication List - Last Reconciled 08/02/24 by Kahlil Escamilla PA-C acetaminophen (Tylenol Extra Strength) 500 mg PO Q6H PRN blood sugar diagnostic (FreeStyle Lite Strips) As directed blood-glucose meter (FreeStyle Lite Meter kit) As directed dulaglutide (Trulicity) 0.75 mg (0.5 mL) subcut QWEEK 4 weeks hydrochlorothiazide 25 mg PO DAILY lancets (FreeStyle Lancets) As directed metformin 1,000 mg PO BID 30 days Tobacco use date assessed: 08/02/24 Fall risk assessment: No Falls in past year Last assessed Fall Risk: 08/02/24 Dental Screening Dental Screen Date: 08/02/24 Did you have a dental visit in the last 12 months?: No Did you have a dental problem in the last 6 months where you did not have access to dental care?: No Was dental information given to patient?: Patient has dentist HPI 3 month follow up f/u DMII HPI Details Patient is a 69 year female here today for follow-up visit.? Patient has a past medical history significant for hypertension, obesity,interstitial lung disease. Concerns--> reports over the last several weeks having right wrist dull pain. Over though she did get an EMG of her upper extremities a few months back though did not have any neuropathy. She denies any particular trauma to her right hand wrist. She believes she probably has arthritis. Has gotten x-rays though waiting on radiologist read out. She does have a cystic like mass over the volar region which could be causing her right wrist soreness. ILD:? {Patient does not agree with diagnosis} Interval history-->. HAs uses inhaler with some relief of her pulm symptoms. 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 Patient's pulmonary function test showing restrictive pulmonary disease and no obstructive pulmonary disease.? Patient is ANS titers and IgA levels are elevated significant for rheumatological disease.(has seen a french professor whom recommended seeing pulmonology) Has seen residency director whom? suggesting a lung biopsy though patient does not want a invasive procedure.? Also her 6min minute walking test did show hypoxia exercise induced. Currently-->? Unfortunately has stopped seeing pulmonology.? Still has time to time a dry cough that she reports has somewhat gotten better. 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 Has used a rescue albuterol inhaler though feels is not helpful for her cough. .. Hypertension: ? Blood pressure acceptable today in office.? She denies any headaches, vision changes, chest discomfort or palpitations.? She continues on hydrochlorothiazide 25 mg. . DMII:? Patient does not regularly check her blood sugars. She has started Trulicity 0.75 mg weekly, has noted some weight loss. Her glycemic control his much better and even her total cholesterol and LDL have significantly improved. Will continue Trulicity and metformin a 1000 daily .. Obesity:? Has lost weight since starting Trulicity. She understands his BMI is over 30 and is working on reducing weight by being more physically active and updated better eating habits Laboratory Tests 02/19/23 02/19/24 07/25/24 08:16 08:00 07:32 RBC 4.70 Creatinine 0.84 Fasting Glucose 152 H 114 H Hemoglobin A1c % 5.8 5.7 Cholesterol 235 202 H LDL Cholesterol, C alc 140 108 H [facility] Medical History Pre-diabetes Exercise hypoxemia Mediastinal lymphadenopathy Impaired glucose metabolism Surgical History History of section History of cholecystectomy Family History Father Stroke Hypertension Mother Stroke Diabetes Brother Limbic encephalitis Social History Housing: House Alcohol intake: current Alcohol intake frequency: 0-2 drinks per day Alcohol type: wine Patient Tobacco Use Status: Former Tobacco user Tobacco use type: Cigarette Years Smoked: quit 40 years ago e-Cigarette/Vaping Use: Never Used service: No Current occupational status: retired 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 1. Little interest or pleasure in doing things: not at all 2. Feeling down, depressed, or hopeless: not at all 3. Trouble falling or staying asleep, or sleeping too much: not at all 4. Feeling tired or having little energy: not at all 5. Poor appetite or overeating: not at all 6. Feeling bad about yourself - or that you are a failure or have let yourself or your family down: not at all 7. Trouble concentrating on things, such as reading the newspaper or watching television: not at all 8. Moving or speaking so slowly that other people could have noticed. Or the opposite - being so fidgety or restless that you have been moving around a lot more than usual: not at all 9. Thoughts that you would be better off or of hurting yourself in some way: not at all Total score: 0 Depression Screening Interpretation: Negative Depression Screening Done: Yes [id number] - PHQ-9 Billing: Yes Source: Developed by Drs. Wilson Wilson, Sheri Roth, Aries Leiva and colleagues, with an educational dejuan from [employer]. Thrive Questionnaire Date Thrive assessed: 08/02/24 I am a: Patient What is your living situation today?: I have a steady place to live Within the past 12 months, did the food you bought not last and you didn't have the money to get more?: Never true Within the past 12 months, did you worry whether your food would run out before you got money to buy more?: Never true Do you have trouble paying for medicines?: No Do you have trouble getting transportation to medical appointments?: No Do you have trouble paying your heating and electricity bill?: No Do you have trouble taking care of your child, family member or friend?: No Do you have trouble with day-to-day activities such as bathing, preparing meals, shopping, managing finances, etc.?: No Are you currently unemployed and looking for a job?: No Are you interested in more education?: No Please select the resources that you would like help with: None Currently or been in a relationship where the following occur: No concerns reported THRIVE Score: 0 AUDIT C Alcohol Use Questionnaire (AUDIT-C) 1. How often do you have a drink containing alcohol?: Monthly or less 2. How many drinks containing alcohol do you have on a typical day when you are drinking?: 1 or 2 3. How often do you have six or more drinks on one occasion?: Never Total Score: 1 Score Reviewed/Action Taken: No JOSEPH-7 AMB Questionnaire JOSEPH-7 Date JOSEPH - 7 assessed: 08/02/24 Feeling nervous, anxious, or on edge: 0 = Not at all Not being able to stop or control worryin = Not at all Worrying too much about different things: 0 = Not at all Trouble relaxin = Not at all Being so restless that it is hard to sit still: 0 = Not at all Becoming easily annoyed or irritable: 0 = Not at all Feeling afraid as if something awful might happen: 0 = Not at all Total JOSEPH-7 score (0-4 normal; 5-9 mild; 10-14 moderate; 15-21 severe): 0 Source: Developed by Drs. Wilson Wilson, Sheri Roth, Aries Leiva and colleagues, with an educational dejuan from [employer]. Review of Systems Const Denies headache(s) Eyes Denies loss of vision ENT Denies vertigo, Denies dizziness, Denies headache(s) and Denies sore throat Card Denies chest pain, Denies leg edema and Denies lightheadedness Resp Denies cough, Denies hemoptysis and Denies wheezing GI Denies abdominal pain, Denies melena, Denies constipation, Denies diarrhea and Denies vomiting Denies urinary frequency, Denies dysuria and Denies urinary urgency Musc Denies arthralgias, Denies joint swelling, Denies numbness and Denies tingling Neuro Denies Abnormal speech present, Denies behavioral changes, Denies vertigo, Denies dizziness, Denies headache(s), Denies loss of vision, Denies memory loss, Denies numbness and Denies tingling Psych Denies anxiety, Denies behavioral changes, Denies depression, Denies memory loss and Denies panic attacks Praveen/Lymph Denies easy bleeding and Denies easy bruising Aller/Immun Denies wheezing Physical exam (Primary Care) Vital Signs: Last Vital Signs Pulse 78 08/02/24 10:57 BP 130/82 08/02/24 10:57 Pulse Ox 95 08/02/24 10:57 Oxygen Delivery Method Room Air 08/02/24 10:57 BMI result Body Mass Index 33.3 Tobacco/Smoking Status: Tobacco use Status Tobacco use date assessed 08/02/24 08/02/24 11:00 Patient Tobacco Use Status Former Tobacco user 08/02/24 11:00 Tobacco use type Cigarette 08/02/24 11:00 e-Cigarette/Vaping Use Never Used 08/02/24 11:00 PHQ-9: PHQ-9 Score PHQ-9: Total score 0 08/02/24 11:52 Depression Screening Interpretation: Negative Thrive Assessment: Date of Thrive Assessment Date Thrive assessed 08/02/24 08/02/24 11:00 Currently or been in a relationship where the following occur: No concerns reported Const General: healthy appearing, no acute distress, alert and awake Nutritional Appearance: well nourished Orientation/consciousness: oriented to person, oriented to place and oriented to time HENMT Ears: TM's normal bilaterally General nose exam: Normal nasal mucous membranes and turbinates present Eyes Conjunctivae: conjunctivae normal Sclerae: sclerae normal Pupils: Equal, round and reactive pupils present Neck Neck: Yes no lymphadenopathy and Yes no JVD Thyroid: Thyroid normal Carotids: no bruits Resp Effort & Inspection: normal respiratory effort and not tachypneic Auscultation: no crackles, no rales, no rhonchi and no wheezes Cardio Rate: regular rate Rhythm: regular rhythm Heart sounds: no murmurs and normal S1 and S2 GI Palpation (GI): Soft to palpation, nontender, no hepatomegaly and no splenomegaly Auscultation: normal bowel sounds Skin General skin exam: no rashes or lesions noted and dry skin Neuro General: oriented to person, oriented to place and oriented to time Cranial nerves: Yes Equal, round and reactive pupils present Speech: No Abnormal speech present Gait exam (Neuro): Normal gait present Motor exam (neuro): no tremor noted Extrem Right upper extremity: full ROM Left upper extremity: full ROM Hand/finger images: 1. 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 use: without intermediate school teacher use Ganglion cyst of volar aspect of right wrist M67.431 ILD (interstitial lung disease) J84.9 Mixed hyperlipidemia E78.2 Hyperlipidemia type: mixed hyperlipidemia Essential hypertension I10 Hypertension type: essential hypertension Additional Codes PHQ-9 - 75652 - PHQ-9 Billing: Yes ([id number]) Assessment & Plan Assessment & Plan (1) DMII (diabetes mellitus, type 2): Code(s): E11.9 - Type 2 diabetes mellitus without complications Category: Medical Qualifiers: Diabetes mellitus complication status: with hyperglycemia 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 Continues with Trulicity 0.75 mg weekly and has lost weight. She has reduced her metformin to a 1000 daily. Goal A1c is to remain below 7.0 (2) Ganglion cyst of volar aspect of right wrist: Code(s): M67.431 - Ganglion, right wrist Category: Medical Plan: Continues to have right wrist pain and soreness. Gotten x-rays though still awaiting radiologist read out. She will consider seeing hand surgeon for removal of the right wrist volar cyst which could be causing her discomfort. (3) ILD (interstitial lung disease): Comment: ON THE CT SCAN THERE IS EVIDENCE OF SOME RETICULO- NODULAR DIESEASE PREDOMINANTLY IN UPPER LOBES, BUT MILD . NO DEFINITE EMPHYSEMA . RHEUMATOLOGY W/U NEG. Code(s): J84.9 - Interstitial pulmonary disease, unspecified Category: Medical Plan: Her pulmonary symptoms have been fairly stable. Does not have to use any inhalers at this point. (4) HLD (hyperlipidemia): Code(s): E78.5 - Hyperlipidemia, unspecified Category: Medical Qualifiers: Hyperlipidemia type: mixed hyperlipidemia Qualified Code(s): E78.2 - Mixed hyperlipidemia Plan: Patient's most recent lipid panel showing much improved total cholesterol and LDL. Goal LDL is to be below 100 (5) HTN (hypertension): Code(s): I10 - Essential (primary) hypertension Category: Medical Qualifiers: Hypertension type: essential hypertension Qualified Code(s): I10 - Essential (primary) hypertension Plan: Patient's blood pressure acceptable today in office. Will continue current dose of hydrochlorothiazide with goal blood pressure to remain below 140/90 Orders: Orders Lipid Panel Today E78.2 - Mixed hyperlipidemia Hemoglobin A1c Today E11.65 - Type 2 diabetes mellitus with hyperglycemia Comprehensive [place]. Panel Fast Today E11.65 - Type 2 diabetes mellitus with hyperglycemia Complete Blood Count no Diff Today E11.65 - Type 2 diabetes mellitus with hyperglycemia Microalbumin, Random (w Creat) Today E11.65 - Type 2 diabetes mellitus with hyperglycemia Medications: Changed From metformin 1,000 mg PO BID 30 days 60 tabs 2RF E11.65 - Type 2 diabetes mellitus with hyperglycemia To metformin 1,000 mg PO DAILY 30 tabs 4RF 30 days E11.65 - Type 2 diabetes mellitus with hyperglycemia Refilled dulaglutide (Trulicity) 0.75 mg (0.5 mL) subcut QWEEK 2 mL 4RF 4 weeks E11.65 - Type 2 diabetes mellitus with hyperglycemia
[2024-08-02 10:57] VITALS: BP 130/82; PULSE 78; O2SAT 95; BMI 33.3
== END 2024-08-02 11:21 | disposition home or self-care (01) ==
PROVIDERS: PCP Physician Assistant; Visit Provider Physician Assistant
DX: E11.65 Type 2 diabetes mellitus with hyperglycemia (principal); J84.9 Interstitial pulmonary disease, unspecified; M67.431 Ganglion, right wrist; I10 Essential (primary) hypertension

== ENCOUNTER → 2024-08-02 10:54 | Outpatient (BNVA) | payer MEDICARE, MEDICAID, SELFPAY | PROVIDERS: PCP Physician Assistant; Visit Provider Physician Assistant | DX: E11.65 Type 2 diabetes mellitus with hyperglycemia (principal); M67.431 Ganglion, right wrist; J84.9 Interstitial pulmonary disease, unspecified; I10 Essential (primary) hypertension | CPT/HCPCS: 96127; 99212 ==

== ENCOUNTER 2025-02-09 08:15 | Outpatient (REF) | payer MEDICARE, MEDICAID, SELFPAY ==
[2025-02-09 09:03] LABS: Hematocrit 42.8 % (37.0-47.0); Hemoglobin 14.6 g/dl (12.0-16.0); Mean Corpuscular HGB Conc 34.1 g/dl (31.0-35.0); Mean Corpuscular Hemoglobin 29.3 pg (27.0-33.0); Mean Corpuscular Volume 85.9 fL (80.0-98.0); Mean Platelet Volume 9.7 fL (9.4-12.3); Platelet Count 264 X10*3/uL (160-400); Red Blood Count 4.98 X10*6/uL (4.20-5.50); Red Cell Distribution Width 13.2 % (11.0-16.0); White Blood Count 6.1 X10*3/uL (4.8-10.8)
[2025-02-09 09:12] LABS: Estimated Average Glucose 126 mg/dL
[2025-02-09 09:41] LABS: Microalbum/Creatinine Ratio Ur 13.5 ug/mg cr (<30)
[2025-02-09 09:43] LABS: Alanine Aminotransferase 23 U/L (0-31); Albumin Level 4.3 g/dL (3.5-5.0); Alkaline Phosphatase 44 U/L (39-117); Anion Gap 16 (12-20); Aspartate Amino Transferase 21 U/L (5-31); Bilirubin Total 0.5 mg/dL (0.0-1.0); Blood Urea Nitrogen 23 mg/dL (9-16); Calcium 9.5 mg/dL (8.4-10.2); Carbon Dioxide 25 mmol/L (22-29); Chloride 106 mmol/L (96-108); Cholesterol 209 mg/dL (<200); Estimated Glomerular Filt Rate > 60; Glucose Fasting 112 mg/dL (60-99); HDL Cholesterol 55 mg/dL (>40); LDL Cholesterol Calculated 108 mg/dL (<100); Potassium 3.9 mmol/L (3.3-5.1); Sodium 143 mmol/L (135-145); Total Protein 7.5 g/dL (6.5-8.0); Triglycerides 234 mg/dL (<150)
== END 2025-02-09 08:16 | disposition home or self-care (01) ==
LOC: HO.LAB 08:15
PROVIDERS: PCP Physician Assistant; Visit Provider Physician Assistant
DX: E11.65 Type 2 diabetes mellitus with hyperglycemia (principal); E78.2 Mixed hyperlipidemia
CPT/HCPCS: 36415; 80053; 80061; 82043; 82570; 83036; 85027

== ENCOUNTER 2025-02-12 09:25 | Outpatient (AMB) | payer MEDICARE, MEDICAID, SELFPAY ==
--- NOTE | 2025-02-12 09:31 | AM.OFFVISMDC ---
Intake Vital Signs 02/12/25 09:34 Height 5 ft 5.75 in Weight 205 lb 4 oz BMI 33.4 BP 120/6 L Blood Pressure Location Lt brachial Position Sitting Pulse 78 Pulse Source Pulse Oximeter Temp 97.1 F Temp Source Temporal Artery Scan Pulse Oximetry (%) 97 Oxygen Delivery Method Room Air Intake Visit Reasons: EMILY G0439 Intake Note: Patient is here for an Annual Wellness Visit. Mitigation Supervisor Required: No Ride Attendant: Ride Attendant offered & declined Accompanied by: Self / Same As Patient Allergies amoxicillin Adverse Reaction (Mild, Verified 02/12/25 09:46) GI UPSET Medication List - Last Reconciled 02/12/25 by Kahlil Escamilla PA-C acetaminophen (Tylenol Extra Strength) 500 mg PO Q6H PRN blood sugar diagnostic (FreeStyle Lite Strips) As directed blood-glucose meter (FreeStyle Lite Meter kit) As directed dulaglutide (Trulicity) 0.75 mg (0.5 mL) subcut QWEEK 4 weeks hydrochlorothiazide 25 mg PO DAILY lancets (FreeStyle Lancets) As directed metformin 1,000 mg PO DAILY 30 days HPI SWV G0439 HPI Details Patient is a 69 year female here today an wellness visit.? Patient has a past medical history significant for hypertension, obesity,interstitial lung disease. concerns---> She reports right hip pain, predominantly on the lateral aspect, which has been exacerbating without clear relation to activity or injury. She indicates prior misunderstanding about an orthopedic referral, needing one to address both hand and hip issues. Lower back pain accompanies the hip discomfort, suspected as related to historical compensation for prior left leg fractures. --> she also reports over the last 6-8 weeks having a productive worsening cough. She has tried [id number] cough cold medications though have not completely resolved her symptoms. She has a history of interstitial lung disease. PLAN: Will send for chest x-ray to evaluate for pulmonary infiltrate Today we discussed patient's end of life planning and comprehensive care plan. Colon cancer screening: Cologuard done in 2023 Breast cancer screening: Declines Cervical cancer screening: Declines Bone density: Declines End of life planning- does have MOLST form at home though has not filled out. Will discuss with family. Vaccines: Up-to-date with COVID vaccine, declines pneumonia, tetanus HPI Comments History of Present Illness Details reviewed past medical history- yes reviewed surgical / hospitalization history- yes reviewed current medications- yes reviewed family history- yes home safety throw rugs? grab bars? raised toilet seat? working smoke detectors? activities of daily living difficulty bathing or showering? difficulty dressing? difficulty using the toilet? difficulty getting in and out of bed? difficulty walking? receives help from other person's with any of the above tasks? instrumental activities of daily living uses telephone - gets to place out of walking distance- go shopping for groceries- repairs own meals- does own minor home maintenance- does own laundry- does own housework- manages own money- currently takes medication- end of life planning discussed advanced directives- yes advanced directives on file? discussed wishes expressed in advanced directives. fall risk have you had any falls with injuries in the past year? have you had 2 or more falls in the past year? fall risk assessment: [facility] Medical History Pre-diabetes Exercise hypoxemia Mediastinal lymphadenopathy Impaired glucose metabolism Surgical History History of section History of cholecystectomy Family History Father Stroke Hypertension Mother Stroke Diabetes Brother Limbic encephalitis Social History Housing: House Alcohol intake: current Alcohol intake frequency: 0-2 drinks per day Alcohol type: wine Patient Tobacco Use Status: Former Tobacco user Tobacco use type: Cigarette Years Smoked: quit 40 years ago e-Cigarette/Vaping Use: Never Used service: No Current occupational status: retired Current occupation: [employer] Employee Cognitive needs: No Hearing needs: No Vision needs: Yes (Per partient is over due for eye exam) Questionnaire Medicare Wellness Checkup What [age] What gender do you identify with?: female During the past 4 weeks, how much have you been bothered by emotional problems such as feeling anxious, depressed, irritable, sad or downhearted, and blue?: not at all During the past 4 weeks, has your physical & emotional health limited your social activities with family, friends, neighbors, or groups?: not at all During the past 4 weeks, how much bodily pain have you generally had?: moderate pain During the past 4 weeks, was someone available to help you if you needed & wanted help?: yes, as much as I wanted During the past 4 weeks, what was the hardest physical activity you could do for at least 2 minutes?: very light Can you get to places out of walking distance without help? (For eg., can you travel alone on buses, taxis or drive your car?): Yes Can you go shopping for groceries or clothes without someone's help?: Yes Can you prepare your own meals?: Yes Can you do your housework without help?: Yes Because of any health problems, do you need the help of another person with your personal care needs such as eating, bathing, dressing or getting around the house?: No Can you handle your own money without help?: Yes During the past 4 weeks, how would you rate your health in general?: very good During the past 4 weeks how have things been going for you?: pretty well Are you having difficulties driving your car?: no Do you always fasten your seat belt when you are in a car?: yes, usually During past 4 weeks, have you been bothered by the following: never: Sexual problems?, Trouble eating well? and Problems using the telephone? and often: Falling or dizzy when standing up, Teeth or denture problems? and Tiredness or fatigue? Have you fallen 2 or more times in the past year?: No Are you afraid of falling?: No Are you a smoker?: no During the past 4 weeks, how many drinks of wine, beer, or other alcoholic beverages did you have?: 2-5 drinks per week Do you exercise for about 20 minutes 3 or more times a week?: no, I usually do not exercise this much Have you been given information to help with the following?: yes: Keeping track of your medications? and no: Hazards in your house that might hurt you? How often do you have trouble taking medicines the way you have been told to take them?: I always take medicine as prescribed How confident are you that you can control & manage most of your health problems?: very confident What is your race?: White Mini Mental State Exam (MMSE) Orientation What is the (year) (season) (date) (day) (month)?: year Where are we (state) (county) (town or city) (hospital) (floor)?: town or city Attention & Calculation (CHOOSE ONE) Spell WORLD backwards (DLROW): 5 letters Score Score: 7 Activity of Daily Living Bathing - sponge bath, tub bath or shower: receives no assistance (gets in/out by self, if usual bathing means Dressing - getting clothes from closets & drawers, including inner/outer garments & fasteners.: gets clothes & gets completely dressed without help Toileting - going to the 'toilet room' for urine/bowel elimination & cleaning self/arranging clothes: goes to toilet room, cleans self, arranges clothes without help Transfer: moves in & out of bed and chair without help (may use support object) Continence: controls urination/bowel movements completely by self Feeding: feeds self without help Total Score: 0 Information obtained from: patient Using telephone: independent Traveling: independent Shopping: independent Preparing meals: independent Housework: independent Taking medicine: independent Managing money: independent PHQ-9 Over the last 2 weeks, how often have you been bothered by any of the following problems? 1. Little interest or pleasure in doing things: not at all 2. Feeling down, depressed, or hopeless: not at all 3. Trouble falling or staying asleep, or sleeping too much: not at all 4. Feeling tired or having little energy: not at all 5. Poor appetite or overeating: not at all 6. Feeling bad about yourself - or that you are a failure or have let yourself or your family down: not at all 7. Trouble concentrating on things, such as reading the newspaper or watching television: not at all 8. Moving or speaking so slowly that other people could have noticed. Or the opposite - being so fidgety or restless that you have been moving around a lot more than usual: not at all 9. Thoughts that you would be better off or of hurting yourself in some way: not at all Total score: 0 Depression Screening Interpretation: Negative Depression Screening Done: Yes 60115 - PHQ-9 Billing: Yes Source: Developed by Drs. Wilson Wilson, Aries Boss and colleagues, with an educational dejuan from [employer]. Thrive Questionnaire Date Thrive assessed: 02/12/25 I am a: Patient What is your living situation today?: I have a steady place to live Within the past 12 months, did the food you bought not last and you didn't have the money to get more?: Never true Within the past 12 months, did you worry whether your food would run out before you got money to buy more?: Never true Do you have trouble paying for medicines?: No Do you have trouble getting transportation to medical appointments?: No Do you have trouble paying your heating and electricity bill?: No Do you have trouble taking care of your child, family member or friend?: No Do you have trouble with day-to-day activities such as bathing, preparing meals, shopping, managing finances, etc.?: No Are you currently unemployed and looking for a job?: No Are you interested in more education?: No Please select the resources that you would like help with: None Currently or been in a relationship where the following occur: No concerns reported THRIVE Score: 0 JOSEPH-7 AMB Questionnaire JOSEPH-7 Date JOSEPH - 7 assessed: 02/12/25 Feeling nervous, anxious, or on edge: 0 = Not at all Not being able to stop or control worryin = Not at all Worrying too much about different things: 0 = Not at all Trouble relaxin = Not at all Being so restless that it is hard to sit still: 0 = Not at all Becoming easily annoyed or irritable: 0 = Not at all Feeling afraid as if something awful might happen: 0 = Not at all Total JOSEPH-7 score (0-4 normal; 5-9 mild; 10-14 moderate; 15-21 severe): 0 Source: Developed by Drs. Wilson Wilson, Aries Boss and colleagues, with an educational dejuan from [employer]. JOSEPH-7 Assessment Billing JOSEPH-7 Assessment Tool: JOSEPH-7 Assessment 94919 AUDIT C Alcohol Use Questionnaire (AUDIT-C) 2. How many drinks containing alcohol do you have on a typical day when you are drinking?: 1 or 2 3. How often do you have six or more drinks on one occasion?: Never Total Score: 0 Physical Exam Vital Signs: Last Vital Signs Temp 97.1 F 02/12/25 09:34 Pulse 78 02/12/25 09:34 BP 120/6 L 02/12/25 09:34 Pulse Ox 97 02/12/25 09:34 Oxygen Delivery Method Room Air 02/12/25 09:34 BMI result Body Mass Index 33.4 HEENT Other: hearing screening whisper test- Eyes Other: vision screening- 20 20 OS OD OU Other: urinary incontinence? no Neuro Other: balance Romberg- normal tandem walk test- Able walk-in turned test- able rise from sit to stand- within 2 seconds Assessment & Plan Assessment & Plan (1) Annual wellness visit: Code(s): Z00.00 - Encounter for general adult medical examination without abnormal findings Plan: As per HPI (2) Right hip pain: Code(s): M25.551 - Pain in right hip Plan: Will send for right hip x-ray to evaluate for arthritis. (3) Low back pain: Code(s): M54.50 - Low back pain, unspecified Qualifiers: Chronicity: chronic Back pain laterality: right Sciatica presence: without sciatica Qualified Code(s): M54.50 - Low back pain, unspecified; G89.29 - Other chronic pain Plan: Image evaluation of the lumbar spine initiated for clarity on degenerative aspects influencing compensatory discomfort from longstanding leg compensation. (4) Cough: Code(s): R05.9 - Cough, unspecified Qualifiers: Cough type: subacute Qualified Code(s): R05.2 - Subacute cough Plan: Recommend chest x-ray to exclude infectious processes; decline empirical treatment prior to clarifying infective contributions. (5) DMII (diabetes mellitus, type 2): Code(s): E11.9 - Type 2 diabetes mellitus without complications Qualifiers: Diabetes mellitus termite control service representative insulin use: without termite control service representative use Diabetes mellitus complication status: with hyperglycemia Qualified Code(s): E11.65 - Type 2 diabetes mellitus with hyperglycemia Plan: Patient's type 2 diabetes well controlled with current medication. Continues with Trulicity 0.75 mg weekly in his noted a small amount of weight loss though sugars have been the same. She is interested in trying an alternative GLP 1 taking better glycemic control and more weight loss. . Goal A1c is to remain below 7.0 Orders: Orders XR lumbar spine 4V min Today M54.50 - Low back pain, unspecified XR chest 2V Today R05.2 - Subacute cough XR hip RT min 2V Today M25.551 - Pain in right hip Medications: New tirzepatide (Mounjaro) for 4 weeks 2.5 mg (0.5 mL) subcut QWEEK 4 weeks 2 mL 0RF E11.65 - Type 2 diabetes mellitus with hyperglycemia Quality Reporting (2019) Depression/Bipolar (159/160/161/177) PHQ-9: Total score: 0 Coding Level of Care Code Medicare Subsequent (G0439) Est Pt Level 3 (95854) Diagnoses Annual wellness visit Z00.00 Right hip pain M25.551 Chronic right-sided low back pain without sciatica M54.50; G89.29 Chronicity: chronic Back pain laterality: right Sciatica presence: without sciatica Subacute cough R05.2 Cough type: subacute Type 2 diabetes mellitus with hyperglycemia, without long-term current use of insulin E11.65 Diabetes mellitus termite control service representative insulin use: without termite control service representative use Diabetes mellitus complication status: with hyperglycemia CPT Codes Advance Care Planning - Time spent: 1-15 minutes, not on file ([id number]) Additional Codes JOSEPH-7 Assessment Billing - JOSEPH-7 Assessment Tool: JOSEPH-7 Assessment 02050 ([id number]) PHQ-9 - 20572 - PHQ-9 Billing: Yes ([id number]) Advance Care Planning Advance Care Planning discussion: Exists, not on file Date of discussion: 02/12/25 Forms completed: MOLST Time spent: 1-15 minutes, not on file Actual minutes spent: 4
[2025-02-12 09:34] VITALS: BP 120/6; PULSE 78; TEMP 36.2; O2SAT 97; BMI 33.4
== END 2025-02-12 10:13 | disposition home or self-care (01) ==
LOC: HO.HMCH 09:27
PROVIDERS: PCP Physician Assistant; Visit Provider Physician Assistant
DX: Z00.00 Encounter for general adult medical examination without abnormal findings (principal); E11.65 Type 2 diabetes mellitus with hyperglycemia; M25.551 Pain in right hip; M54.50 Low back pain, unspecified; G89.29 Other chronic pain; R05.2 Subacute cough

== ENCOUNTER → 2025-02-12 09:25 | Outpatient (BNVA) | payer MEDICARE, MEDICAID, SELFPAY | PROVIDERS: PCP Physician Assistant; Visit Provider Physician Assistant | DX: Z00.01 Encounter for general adult medical examination with abnormal findings (principal); M25.551 Pain in right hip; M54.50 Low back pain, unspecified; G89.29 Other chronic pain; R05.2 Subacute cough; E11.65 Type 2 diabetes mellitus with hyperglycemia | CPT/HCPCS: 96127; 99212 ==

== ENCOUNTER 2025-03-09 11:18 | Outpatient (REF) | payer MEDICARE, MEDICAID, SELFPAY ==
--- NOTE | ~2025-03-09 | XR_ITS ---
EXAMINATION: XR CHEST CLINICAL INFORMATION: R05.2 - Subacute cough COMPARISON: April 22, 2020 TECHNIQUE: 2 views of the chest were obtained. FINDINGS: Pulmonary reticular pattern. No consolidation, pleural effusion or pneumothorax. Cardiomediastinal silhouette size is normal. Multilevel thoracolumbar spondylosis. Vascular clips right upper quadrant abdomen likely cholecystectomy. Degenerative changes in the shoulders. XR/XR chest 2V IMPRESSION: Chronic interstitial lung disease. Please refer to CT chest dated September 10, 2020. Electronically signed by: Mark Munoz MD 03/09/2025 12:19 PM EDT
--- NOTE | ~2025-03-09 | XR_ITS ---
EXAMINATION: XR HIP, RIGHT CLINICAL INFORMATION: M25.551 - Pain in right hip COMPARISON: None available. TECHNIQUE: Two views of the right hip. FINDINGS: There are enthesophytes involving the greater trochanter and the anterior superior iliac spine The right SI joint is unremarkable. Minimal osteophyte formation is noted involving acetabular roof. There is subtle superior medial joint space narrowing. XR/XR hip RT min 2V IMPRESSION: Minimal evidence of degenerative disease in the right hip. Electronically signed by: Virgil Bell MD 03/09/2025 11:59 AM EDT
--- NOTE | ~2025-03-09 | XR_ITS ---
EXAMINATION: X-ray lumbar spine. CLINICAL INFORMATION: Low back pain. TECHNIQUE: AP oblique and lateral views.. COMPARISON: None FINDINGS: Multilevel marginal osteophyte formation and syndesmophyte formation throughout the axial skeleton. S-shaped curvature with a rotatory component at the thoracolumbar junction. No acute cortical disruption. No gross malalignment. Facet joint hypertrophy at L4-5 and L5-S1. Vascular clips in the left hemiabdomen. No lytic or blastic lesions. Vascular complications. 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 Electronically signed by: Mark Munoz MD 03/09/2025 12:22 PM EDT
--- OUTSIDE RECORDS SUMMARY | 2025-03-09 12:29 | XMS_ITS | Patient Health Record ---
Author Organization [facility] Address [address] [place] [address] Care Team Providers Care Hog Dropper Name Role Phone Ruy Sheriff Jr Reason For Referral No Information Plan Of Treatment No Information
== END 2025-03-09 11:19 | disposition home or self-care (01) ==
LOC: HO.XRAY 11:18
PROVIDERS: PCP Physician Assistant; Visit Provider Physician Assistant
DX: M54.50 Low back pain, unspecified (principal); R05.2 Subacute cough; M25.551 Pain in right hip
CPT/HCPCS: 71046; 72110; 73502

== ENCOUNTER → 2025-03-09 11:21 | Outpatient (BNV) | payer MEDICARE, MEDICAID, SELFPAY | PROVIDERS: PCP Physician Assistant; Visit Provider Radiology Diagnostic Radiology | DX: M25.78 Osteophyte, vertebrae (principal); M25.551 Pain in right hip; J84.9 Interstitial pulmonary disease, unspecified | CPT/HCPCS: 71046; 72110 ==

== ENCOUNTER 2025-04-10 08:33 | Outpatient (AMB) | payer MEDICARE, MEDICAID, SELFPAY ==
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
[2025-04-10 08:43] VITALS: BP 143/83; PULSE 76; O2SAT 100; BMI 32.8
--- OUTSIDE RECORDS SUMMARY | 2025-04-10 08:49 | XMS_ITS | Patient Health Record ---
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
== END 2025-04-10 09:06 | disposition home or self-care (01) ==
LOC: HO.PMC 08:34
PROVIDERS: PCP Physician Assistant; Referring Provider Physician Assistant; Visit Provider Nurse Practitioner Family
DX: M70.61 Trochanteric bursitis, right hip (principal); M53.3 Sacrococcygeal disorders, not elsewhere classified; M54.50 Low back pain, unspecified; G89.29 Other chronic pain; M41.9 Scoliosis, unspecified
CPT/HCPCS: 99204

== ENCOUNTER → 2025-04-10 08:33 | Outpatient (BNVA) | payer MEDICARE, MEDICAID, SELFPAY | PROVIDERS: PCP Physician Assistant; Referring Provider Physician Assistant; Visit Provider Nurse Practitioner Family | DX: M70.61 Trochanteric bursitis, right hip (principal); M53.3 Sacrococcygeal disorders, not elsewhere classified; M54.50 Low back pain, unspecified; M41.9 Scoliosis, unspecified | CPT/HCPCS: 99202 ==

== ENCOUNTER 2025-05-02 09:01 | Outpatient (RCR) | payer MEDICARE, OTHER, SELFPAY ==
--- NOTE | 2025-04-02 10:54 | MHC.PT.EP ---
[facility] [place] [facility] [place] Office [place] Office [address] [place] [address] [phone] F: [phone] F: [phone] F: [phone] F: [phone] Physical Therapy Plan of Care Date of Evaluation: 04/02/25 Date of Surgery: Diagnosis: THORACIC SCOLIOSIS Assessment: 69 YO FEMALE REF TO PT FOR SCOLIOSIS, PROGRESSIVE Rt HIP COMPLEX PAIN- SHE HAS A H/O PRIOR INJURIES/ FXs TO OPPOSITE Lt LE... OBJECTIVE FINDINGS: DECR POSTURAL AWARENESS W (+) LUMBOPELVIC ASYM -> (+) LLI W Rt LE ACTING LONGER-> ALTERED GAIT MECH, EXCESSIVE GAIL HIP ER AND SIGNIF LIMITATION W GAIL HIP IR-> TO NEUTRAL GAIL, SOME TRUNK AROM RESTRICTION, (+) STRENGTH DEFICIT W CORE MM / GLUTES, (+) LIBIA GAIL, AND FLUCTUATING PAIN IN Rt HIP COMPLEX. FUNCTIONALLY, SHE HAS DECR FABIENNE TO IN/OUT OF CAR, STAIR NAVIGATION, INCR WALKING,,, SHE WOULD BENEFIT FROM PT TO ADDRESS THE ABOVE MECH FINDINGS AND DEV A HEP TO ALLOW Pt TO SELF MANAGE SXS, SHE AGREES W TRIALING PT. Frequency and Duration: The patient will be seen 2 x WK x 4 WKS Short Term Goals: *DECR Rt HIP COMPLX / Rt LS PAIN TO 2-3/10 *INITIATE HEP-> APPROP CORE ENGAGEMENT *IMPROVE HIP IR ROM AND STRENGTH Account Information Clerk Goals: *Pt INDEP W HEP *IMPROVE EFFICENCY W FUNCT MOB / GAIT MECH *IMPROVED STRENGTH IN LUMBOPELVIC/ PROX LEs *SLS x 15 SEC EACH LE (AT EVAL 3 SEC Rt AND 7 SEC Lt) Treatment Plan: Modalities to reduce pain, spasms and effusion. Manual therapy to restore motion and function. Therapeutic exercise to improve strength and flexibility. Neuromuscular re-education for posture and balance. Therapeutic activities to return to functional activities of daily living. Electronically signed by: PARDEEP MATTA,PT Please sign and return to therapist. Thank you for your referral.
--- NOTE | 2025-05-02 09:48 | MHC.PT.DC ---
[facility] [place] Office [place] Office [place] Office [address] [place] [address] [phone] F: [phone] F: [phone] F: [phone] F: [phone] Physical Therapy Discharge Report Diagnosis: THORACIC SCOLIOSIS Date of Surgery: Date of Evaluation: 04/02/25 Date of Discharge: 05/02/25 Treatments to Date: 6 Cancellations to Date: 3 No Shows to Date: 0 Discharge Status: Achieved Goals Improved Function Independent with HEP Discharge Summary: THE Pt FEELS READY TO CONT W HEP ON HER OWN- SHE IS PLEASED W HER PROGRESS IN PT AND DECR LBP; LEs SXS. SHE CAN NOW SQUAT TO THE FLOOR, SHE HAS SOME ACTIVE HIP INTERNAL ROTATION, AND IS SOMEWHAT COMPLIANT W HER HEP- SHE IS ABLE TO SLS Rt x 13 SEC AND Lt 9 SEC. HER OSWESTRY TODAY AT D/C IS 50 , AND AT EVAL, . SHE HAS MET HER PT GOALS AT THIS TIME AND IS D/C W HEP. Electronically signed by: PARDEEP MATTA,PT Please sign and return to therapist. Thank you for your referral.
== END 2025-05-02 09:49 | disposition home or self-care (01) ==
LOC: HO.PT 09:01
PROVIDERS: PCP Physician Assistant; Visit Provider Physician Assistant
DX: M41.34 Thoracogenic scoliosis, thoracic region (principal)
CPT/HCPCS: 97110; 97162

== ENCOUNTER 2025-06-05 10:20 | Outpatient (AMB) | payer MEDICARE, MEDICAID, SELFPAY ==
--- NOTE | 2025-06-05 10:24 | A.OFFPC_ITS ---
Vital Signs 06/05/25 10:25 Height 5 ft 5.75 in Weight 195 lb BMI 31.7 BP 146/90 H Blood Pressure Location Lt brachial Position Sitting Pulse 80 Pulse Source Pulse Oximeter Temp 97.1 F Temp Source Temporal Artery Scan Pulse Oximetry (%) 97 Oxygen Delivery Method Room Air Intake Visit Reasons: f/u DMII/ HLD Intake Note: Patient is here to follow up on DM, HLD. Brattice Builder Required: No Roof Truss Builder: Not Required per policy Accompanied by: Self / Same As Patient Allergies amoxicillin Adverse Reaction (Mild, Verified 06/05/25 10:38) GI UPSET Medication List - Last Reconciled 06/05/25 by Kahlil Escamilla PA-C acetaminophen (Tylenol Extra Strength) 500 mg PO Q6H PRN blood sugar diagnostic (FreeStyle Lite Strips) As directed blood-glucose meter (FreeStyle Lite Meter kit) As directed diclofenac sodium 1% (Arthritis Pain (diclofenac)) 4 grams topical QID hydrochlorothiazide 25 mg PO DAILY lancets (FreeStyle Lancets) As directed metformin 1,000 mg PO DAILY 30 days tirzepatide (Mounjaro) 5 mg (0.5 mL) subcut QWEEK 4 weeks Tobacco use date assessed: 06/05/25 Fall risk assessment: No Falls in past year Last assessed Fall Risk: 06/05/25 Dental Screening Dental Screen Date: 06/05/25 Did you have a dental visit in the last 12 months?: No Did you have a dental problem in the last 6 months where you did not have access to dental care?: No Was dental information given to patient?: No HPI f/u DMII/ HLD HPI Details Patient is a 70 year female here today for follow-up visit.? Patient has a past medical history significant for hypertension, obesity,interstitial lung disease. .. Hypertension: ? Blood pressure elevated today in office.? She denies any headaches, vision changes, chest discomfort or palpitations.? Will start combo blood pressure medication lisinopril hydrochlorothiazide for better blood pressure control and renal protection. g. . DMII:? Today's A1c excellent at 5.7. She has lost 10 lb since last office visit, continues on monitor which has been effective for her. Her glycemic control his much better and even her total cholesterol and LDL have significantly improved. .. Obesity:? Has lost weight since starting GLP 1. Today's BMI at 31 She understands his BMI is over 30 and is working on reducing weight by being more physically active and updated better eating habits [facility] Medical History Pre-diabetes Exercise hypoxemia Mediastinal lymphadenopathy Impaired glucose metabolism Surgical History History of section History of cholecystectomy Family History Father Stroke Hypertension Mother Stroke Diabetes Brother Limbic encephalitis Social History Housing: House Alcohol intake: current Alcohol intake frequency: 0-2 drinks per day Alcohol type: wine Patient Tobacco Use Status: Former Tobacco user Tobacco use type: Cigarette Years Smoked: quit 40 years ago e-Cigarette/Vaping Use: Never Used Second Hand Smoke Exposure: Yes service: No Current occupational status: retired 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 Wilson Wilson, Sheri Roth, Aries Leiva and colleagues, with an educational dejuan from [employer]. Review of Systems Const Denies headache(s) Eyes Denies loss of vision ENT Denies vertigo, Denies dizziness, Denies headache(s) and Denies sore throat Card Denies chest pain, Denies leg edema and Denies lightheadedness Resp Denies cough, Denies hemoptysis and Denies wheezing GI Denies abdominal pain, Denies melena, Denies constipation, Denies diarrhea and Denies vomiting Denies urinary frequency, Denies dysuria and Denies urinary urgency Musc Denies arthralgias, Denies joint swelling, Denies numbness and Denies tingling Neuro Denies Abnormal speech present, Denies behavioral changes, Denies vertigo, Denies dizziness, Denies headache(s), Denies loss of vision, Denies memory loss, Denies numbness and Denies tingling Psych Denies anxiety, Denies behavioral changes, Denies depression, Denies memory loss and Denies panic attacks Praveen/Lymph Denies easy bleeding and Denies easy bruising Aller/Immun Denies wheezing Physical exam (Primary Care) Vital Signs: Last Vital Signs Temp 97.1 F 06/05/25 10:25 Pulse 80 06/05/25 10:25 BP 146/90 H 06/05/25 10:25 Pulse Ox 97 06/05/25 10:25 Oxygen Delivery Method Room Air 06/05/25 10:25 Care Plan Goal for BP management: Will add on lisinopril for better blood pressure control Next steps: Continue to follow blood pressure BMI result Body Mass Index 31.7 BMI Assessment/Plan discussion: High BMI High, discussed plan: lifestyle, weight reduction, dietary and physical activity Tobacco/Smoking Status: Tobacco use Status Tobacco use date assessed 06/05/25 06/05/25 10:32 Patient Tobacco Use Status Former Tobacco user 06/05/25 10:32 Tobacco use type Cigarette 06/05/25 10:32 e-Cigarette/Vaping Use Never Used 06/05/25 10:32 Thrive Assessment: Date of Thrive Assessment Date Thrive assessed 02/12/25 06/05/25 10:32 Const General: healthy appearing, no acute distress, alert and awake Nutritional Appearance: well nourished Orientation/consciousness: oriented to person, oriented to place and oriented to time HENMT Ears: TM's normal bilaterally General nose exam: Normal nasal mucous membranes and turbinates present Eyes Conjunctivae: conjunctivae normal Sclerae: sclerae normal Pupils: Equal, round and reactive pupils present Neck Neck: Yes no lymphadenopathy and Yes no JVD Thyroid: Thyroid normal Carotids: no bruits Resp Effort & Inspection: normal respiratory effort and not tachypneic Auscultation: no crackles, no rales, no rhonchi and no wheezes Cardio Rate: regular rate Rhythm: regular rhythm Heart sounds: no murmurs and normal S1 and S2 GI Palpation (GI): Soft to palpation, nontender, no hepatomegaly and no splenomegaly Auscultation: normal bowel sounds Skin General skin exam: no rashes or lesions noted and dry skin Neuro General: oriented to person, oriented to place and oriented to time Cranial nerves: Yes Equal, round and reactive pupils present Speech: No Abnormal speech present Gait exam (Neuro): Normal gait present Motor exam (neuro): no tremor noted Extrem Right upper extremity: full ROM Left upper extremity: full ROM Right lower extremity: full ROM; no edema Left lower extremity: full ROM; no edema Psych Mental Status: mental status grossly normal Speech and movement: Normal speech and movement present Affect: normal affect Attitude: cooperative Thought process: Normal thought process present Results AMB Hemoglobin A1c AMB Hemoglobin A1c 5.7 % Last Edit by CORTES Carreon on 06/05/25 10:37 Coding Level of Care Code Est Pt Level 4 (47067) Diagnoses Type 2 diabetes mellitus with hyperglycemia, without long-term current use of insulin E11.65 Diabetes mellitus termite exterminator insulin use: without termite exterminator use Diabetes mellitus complication status: with hyperglycemia Essential hypertension I10 Hypertension type: essential hypertension Mixed hyperlipidemia E78.2 Hyperlipidemia type: mixed hyperlipidemia Assessment & Plan Assessment & Plan (1) DMII (diabetes mellitus, type 2): Code(s): E11.9 - Type 2 diabetes mellitus without complications Category: Medical Qualifiers: Diabetes mellitus termite exterminator insulin use: without fci use Diabetes mellitus complication status: with hyperglycemia Qualified Code(s): E11.65 - Type 2 diabetes mellitus with hyperglycemia Plan: Patient's type 2 diabetes well controlled with current medication. Continues on Mounjaro and has lost 10 lb since last office visit. . Goal A1c is to remain below 7.0 (2) HTN (hypertension): Code(s): I10 - Essential (primary) hypertension Category: Medical Qualifiers: Hypertension type: essential hypertension Qualified Code(s): I10 - Essential (primary) hypertension Plan: Patient's blood pressure elevated today in office. Patient willing to add on lisinopril to her blood pressure med regime thus will use combo agent lisinopril hydrochlorothiazide. Goal blood pressures to be below 140/90 (3) HLD (hyperlipidemia): Code(s): E78.5 - Hyperlipidemia, unspecified Category: Medical Qualifiers: Hyperlipidemia type: mixed hyperlipidemia Qualified Code(s): E78.2 - Mixed hyperlipidemia Plan: Most recent lipid panel showing borderline high cholesterol and LDL. She is not interested in his starting any cholesterol medication. She will work on weight reduction and dietary modifications to reduce her cholesterol. Goal LDL is to be below 100 Orders: Orders AMB Hemoglobin A1c Today E11.65 - Type 2 diabetes mellitus with hyperglycemia Lipid Panel Today E78.2 - Mixed hyperlipidemia Comprehensive [place]. Panel Fast Today E11.65 - Type 2 diabetes mellitus with hyperglycemia Complete Blood Count no Diff Today E11.65 - Type 2 diabetes mellitus with hyperglycemia Microalbumin, Random (w Creat) Today E11.65 - Type 2 diabetes mellitus with hyperglycemia Referrals Ophthalmology Referral E11.65 - Type 2 diabetes mellitus with hyperglycemia Medications: New lisinopril-hydrochlorothiazide 10-12.5 mg 1 tab PO DAILY 30 tabs 1RF 30 days E11.65 - Type 2 diabetes mellitus with hyperglycemia On Hold hydrochlorothiazide Hold Comment: Doctor's Order 25 mg PO DAILY 30 tabs 6RF I10 - Essential (primary) hypertension
[2025-06-05 10:25] VITALS: BP 146/90; PULSE 80; TEMP 36.2; O2SAT 97; BMI 31.7
--- OUTSIDE RECORDS SUMMARY | 2025-06-05 12:35 | XMS_ITS | Patient Health Record ---
Author Organization [facility] Address [address] [place] [address] Care Team Providers Care Hoeing Row Boss Name Role Phone Ruy Sheriff Jr Reason For Referral No Information Plan Of Treatment No Information
== END 2025-06-05 10:56 | disposition home or self-care (01) ==
LOC: HO.HMCH 10:21
PROVIDERS: PCP Physician Assistant; Visit Provider Physician Assistant
DX: E11.65 Type 2 diabetes mellitus with hyperglycemia (principal); I10 Essential (primary) hypertension; E78.2 Mixed hyperlipidemia

== ENCOUNTER → 2025-06-05 10:20 | Outpatient (BNVA) | payer MEDICARE, MEDICAID, SELFPAY | PROVIDERS: PCP Physician Assistant; Visit Provider Physician Assistant | DX: I10 Essential (primary) hypertension (principal); E66.9 Obesity, unspecified; J84.9 Interstitial pulmonary disease, unspecified; E11.65 Type 2 diabetes mellitus with hyperglycemia; E78.2 Mixed hyperlipidemia; Z68.31 Body mass index [BMI] 31.0-31.9, adult | CPT/HCPCS: 83036; 99212 ==